=== PATIENT | female | born 1950 | race Caucasian/White ===

== ENCOUNTER 2017-04-20 16:03 | Inpatient (IN) ==
[2017-04-20] MEDS ORDERED: 0.9 % Sodium Chloride 1,000 ML IVC ONE (16:29)
--- NOTE | 2017-04-20 16:36 | Emergency Department Note ---
Disposition Clinical Impression: Rectal bleeding Disposition: Admitted As Inpatient GI Bleed HPI - General Chief complaint: ED GI Bleed Stated complaint: rectal bleeding/back pain Time Seen by Provider: 04/20/17 16:24 Source: patient Limitations: no limitations Nursing Notes Reviewed: Yes Vital Signs Reviewed: Yes - History of Present Illness HPI Narrative: 66-year-old female who comes in complaining of crampy abdominal pain and rectal bleeding began today. 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 She presents now for evaluation. 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 Constitutional: Denies: fever, chills, weakness, weight change Eyes: Denies: eye pain, eye discharge, vision change ENT ED: Denies: ear pain, throat pain, dental pain, hearing loss, epistaxis, congestion, dysphagia Cardiovascular: Denies: chest pain, palpitations, dyspnea on exertion, edema, syncope Respiratory: Denies: cough, dyspnea, wheezes, hemoptysis, stridor Gastrointestinal: Reports: abdominal pain, hematochezia. Denies: nausea, vomiting, diarrhea, constipation, hematemesis, melena Genitourinary: Denies: dysuria, frequency, hematuria, discharge Musculoskeletal: Denies: back pain, neck pain, arthralgia, myalgia Integumentary: Denies: rash, abrasion, lesions Neurological: Denies: headache, weakness, numbness, paresthesias, confusion, abnormal gait, vertigo Psychiatric: Denies: anxiety, depression, suicidal thoughts, homicidal thoughts , auditory hallucinations, visual hallucinations Endocrine: Denies: fatigue Hematological/Lymphatic: Denies: easy bleeding, easy bruising Allergic/Immunologic: Denies: facial swelling, urticaria Past Medical History - Past Medical History Medical history: Reports: CVA, DVT, GERD, other Psychiatric history: Reports: no psych history - Social History Smoking Status: Never smoker Smokeless Tobacco Status: No Alcohol use: Reports: none Drug use: Reports: none Physical Exam - General Limitations: no limitations General appearance: alert, in distress - Head Head exam: atraumatic - Eye Eye exam: Present: normal appearance, PERRL, EOMI - ENT ENT exam: normal exam, normal oropharynx, mucous membranes moist - Neck Neck exam: Present: normal inspection, full ROM, trachea midline - Chest Chest inspection: Present: normal inspection, symmetric chest wall rise - Respiratory Respiratory exam: Present: normal lung sounds bilaterally - Cardiovascular Cardiovascular exam: Present: regular rate, normal rhythm, normal heart sounds - Abdominal Exam Abdominal exam: Present: tenderness. Absent: guarding, rebound - Extremities Exam Extremities exam: Present: normal inspection, full ROM. Absent: tenderness, pedal edema - Expanded Lower Extremity Exam Neurovascular/Tendon exam: Absent: motor deficit, sensory deficit, tendon deficit Gait: observed and normal - Back Exam Back exam: Present: normal inspection, full ROM. Absent: tenderness - Neurological Exam Neurological exam: Present: alert, oriented X3 - Psychiatric Psychiatric exam: Present: normal affect, normal mood - Skin Skin exam: Present: warm, dry, intact, normal color Course - Reevaluation(s) Reevaluation #1: 66-year-old female who is on warfarin for factor V and previous blood clots and comes in with rectal bleeding. Hemoglobin is stable however she does have a positive guaiac and she did have a bloody bowel movement here in the ER. Patient will be admitted for evaluation and treatment. Time: 19:13 - Consultations Time: 19:14 Vital Signs Temperature 97.9 F 04/20/17 16:09 Pulse Rate 95 04/20/17 16:09 Respiratory Rate 22 04/20/17 16:09 Blood Pressure 132/75 04/20/17 16:09 O2 Sat by Pulse Oximetry 93 04/20/17 16:09 Temperature 98.0 F 04/21/17 11:59 Pulse Rate 76 04/21/17 11:59 Respiratory Rate 18 04/21/17 11:59 Blood Pressure 139/79 04/21/17 11:59 O2 Sat by Pulse Oximetry 96 04/21/17 11:59 Oxygen Delivery Oxygen Delivery Room Air GI Bleed - Lab Data Lab results reviewed: Yes I reviewed the patient's lab results. Result diagrams: 04/21/17 08:19 04/21/17 05:53 Lab Results 04/20/17 04/20/17 04/20/17 Range/Units 16:58 16:58 16:58 WBC 7.0 (4.3-11.1) K/mcL RBC 5.15 H (3.82-4.97) M/mcL Hgb 14.9 (11.5-15.4) g/dL Hct 45.6 H (35.3-44.9) % MCV 88.5 (83.0-100.0) fL MCH 28.9 (28.0-33.3) pg MCHC 32.7 (31.6-35.5) g/dL RDW 13.3 (11.5-14.5) % Plt Count 178 (140-400) K/mcL MPV 11.3 (9.4-12.4) fL Immature Gran % 0.3 (0-4) % Seg Neutrophils % 54.2 % Lymphocytes % 32.2 % Monocytes % 11.2 % Eosinophils % 1.7 % Basophils % 0.4 % Neutrophils # 3.8 (1.6-8.9) K/mcL Lymphocytes # 2.2 (0.6-4.6) K/mcL Monocytes # 0.8 (0.0-1.3) K/mcL Eosinophils # 0.1 (0.0-0.6) K/mcL Basophils # 0.0 (0.0-0.2) K/mcL PT 41.3 H (9.4-12.1) Seconds INR 3.7 APTT 47.1 H (26.0-36.0) Seconds Sodium 142 (136-145) mEq/L Potassium 3.5 (3.5-4.5) mEq/L Chloride 108 (98-109) mEq/L Carbon Dioxide 24 (19-29) mEq/L BUN 10 (7-20) mg/dL Creatinine 0.82 (0.57-1.11) mg/dL Est GFR ( Amer) > 60 (> 60) Est GFR (Non-Af Amer) > 60 (> 60) BUN/Creatinine Ratio 12 (6-26) Glucose 97 (70-99) mg/dL Calculated Osmolality 293 (280-300) Lactic Acid (0.5-2.2) mmol/L Calcium 9.2 (8.6-10.8) mg/dL Troponin I (0-0.03) ng/mL Lipase 47 (8-78) Units/L Blood Type Antibody Screen 04/20/17 04/20/17 04/20/17 Range/Units 16:58 16:58 16:58 WBC (4.3-11.1) K/mcL RBC (3.82-4.97) M/mcL Hgb (11.5-15.4) g/dL Hct (35.3-44.9) % MCV (83.0-100.0) fL MCH (28.0-33.3) pg MCHC (31.6-35.5) g/dL RDW (11.5-14.5) % Plt Count (140-400) K/mcL MPV (9.4-12.4) fL Immature Gran % (0-4) % Seg Neutrophils % % Lymphocytes % % Monocytes % % Eosinophils % % Basophils % % Neutrophils # (1.6-8.9) K/mcL Lymphocytes # (0.6-4.6) K/mcL Monocytes # (0.0-1.3) K/mcL Eosinophils # (0.0-0.6) K/mcL Basophils # (0.0-0.2) K/mcL PT (9.4-12.1) Seconds INR APTT (26.0-36.0) Seconds Sodium (136-145) mEq/L Potassium (3.5-4.5) mEq/L Chloride (98-109) mEq/L Carbon Dioxide (19-29) mEq/L BUN (7-20) mg/dL Creatinine (0.57-1.11) mg/dL Est GFR ( Amer) (> 60) Est GFR (Non-Af Amer) (> 60) BUN/Creatinine Ratio (6-26) Glucose (70-99) mg/dL Calculated Osmolality (280-300) Lactic Acid 1.4 (0.5-2.2) mmol/L Calcium (8.6-10.8) mg/dL Troponin I 0.02 (0-0.03) ng/mL Lipase (8-78) Units/L Blood Type AB POSITIVE Antibody Screen NEGATIVE - Radiology Data Radiology results reviewed: Yes I reviewed the patient's radiology results. Abdomen/Pelvis CT 04/20/17 16:31 IMPRESSION: No evidence of obstructive uropathy. Moderate hiatal hernia. D/ / Devan Carvajal MD / Devan Carvajal MD Interpreting Provider: Devan Carvajal MD - EKG Data EKG attestation: Yes I reviewed and interpreted this EKG. EKG shows normal: sinus rhythm Rate: normal Rhythm: NSR Interpretation: no acute changes
[2017-04-20 17:06] LABS: Basophils % 0.4 %; Eosinophils # 0.1 K/mcL (0.0-0.6); Eosinophils % 1.7 %; Hematocrit 45.6 % (35.3-44.9); Hemoglobin 14.9 g/dL (11.5-15.4); Immature Granulocytes % 0.3 % (0-4); Lymphocytes # 2.2 K/mcL (0.6-4.6); Lymphocytes % 32.2 %; Mean Corpuscular HGB Conc 32.7 g/dL (31.6-35.5); Mean Corpuscular Hemoglobin 28.9 pg (28.0-33.3); Mean Corpuscular Volume 88.5 fL (83.0-100.0); Mean Platelet Volume 11.3 fL (9.4-12.4); Monocytes # 0.8 K/mcL (0.0-1.3); Monocytes % 11.2 %; Neutrophils # 3.8 K/mcL (1.6-8.9); Platelet Count 178 K/mcL (140-400); Red Blood Count 5.15 M/mcL (3.82-4.97); Red Cell Distribution Width 13.3 % (11.5-14.5); Segmented Neutrophils % 54.2 %
[2017-04-20 17:12] LABS: INR 3.7; Prothrombin Time 41.3 Seconds (9.4-12.1)
[2017-04-20 17:14] LABS: Activated Partial Thrombo Time 47.1 Seconds (26.0-36.0)
[2017-04-20 17:24] LABS: BUN/Creatinine Ratio 12 (6-26); Blood Urea Nitrogen 10 mg/dL (7-20); Calcium 9.2 mg/dL (8.6-10.8); Carbon Dioxide 24 mEq/L (19-29); Chloride 108 mEq/L (98-109); Glucose 97 mg/dL (70-99); Lipase 47 Units/L (8-78); Osmolality,Calculated 293 (280-300); Potassium 3.5 mEq/L (3.5-4.5); Sodium 142 mEq/L (136-145); eGFR For African Americans > 60 (> 60); eGFR For Non-African Americans > 60 (> 60)
[2017-04-20] MEDS ORDERED: *HR* Morphine 2 MG/ML SYRINGE IVP PRN (21:01)
[2017-04-20] MEDS ORDERED: Naloxone 0.4 MG/ML INJ IVP PRN (21:01)
[2017-04-20 21:53] LABS: Hematocrit 45.1 % (35.3-44.9); Hemoglobin 14.7 g/dL (11.5-15.4)
--- NOTE | 2017-04-20 22:11 | Internal Med History&Physical ---
Date of Encounter: 04/20/17 Time of Encounter: 22:08 Assessment and Plan (1) Rectal bleeding Current visit: Yes Status: Acute Patient reports blood in her stool just prior to arrival in ED. She takes coumadin for Factor V leiden and her INR is supratherapeutic. Hgb stable at 14.9. She reports she had another bowel movement in the ED that was not bloody. Hold coumadin. Check H/H Q6hr Check PT/INR/PTT with morning labs Clear liquid diet Consider referral to GI for scope. (2) Supratherapeutic INR Current visit: Yes Status: Acute Patient on coumadin for Factor V Leiden. INR of 3.7. Hold coumadin Recheck PT/INR in the morning. (3) Factor V Leiden Current visit: Yes Status: Acute Patient has Factor V Leiden. She reports she had a CVA in her 20s, multiple miscarriages, multiple DVTs and PE. She reports she was started on coumadin in the . Her INR is Supratherapeutic today at 3.7 and she is reporting rectal bleeding. Will hold coumadin and recheck PT/INR in the morning. Given patient's history of blood clots, will not reverse coumadin. (4) Diarrhea Current visit: Yes Status: Acute Patient reports chronic liquid yellow stools. She has been evaluated by GI and diagnosed with functional diarrhea. Qualifiers: Diarrhea type: functional diarrhea Qualified Code(s): K59.1 - Functional diarrhea (5) DVT prophylaxis Current visit: Yes Status: Acute Sequential compression devices Patient is on coumadin and INR is supratherapeutic, Holding coumadin, additional pharmacologic prophylaxis contraindicated in patient with suspected GI bleed. Internal Medicine - H&P: HPI Chief complaint: rectal bleeding Admitted From: Emergency Dept Plans for Post Hospital Care: Home History of present illness: Ms. Prieto is a 66 year old female with active 5 Leiden deficiency on Coumadin, history of multiple DVTs, PE, CVA, peripheral vascular disease, functional diarrhea presented to the emergency department today with complaints of bloody stool. Patient reports that she has chronic liquid stools, following as an outpatient with GI and has been diagnosed with functional diarrhea. She reports that after having a bowel movement today she wiped and so blood on her toilet paper, she then had another bowel movement soon after which looked like blood in the toilet bowl. She denies any lightheadedness, dizziness, chest pain , palpitations, shortness of breath. He does endorse cramping with her bowel movements, but this is chronic for her. She denies nausea or vomiting, fever, chills or sweats. She reports she had another bowel movement in the emergency department, which she reports was normal for her. Evaluation in the emergency department revealed supratherapeutic INR of 3.7. Hemoglobin was stable at 14.9. CT of the abdomen revealed moderate hiatal hernia, the colon was decompressed, and no inflammatory stranding was seen. Torres, patient alert and oriented, in no acute distress. Heart had regular rate and rhythm, lungs are clear bilaterally to auscultation. Abdomen was diffusely mildly tender, but patient reports this is normal for her. Past Med Surg Social Fam HX - Past Medical History Medical history: CVA, DVT, GERD, pulmonary embolus, venous stasis, other ( factor V leiden) Psychiatric history: depression - Past Surgical History Surgical History: hysterectomy, vascular surgery - Social History Smoking Status: Never smoker Smokeless Tobacco Status: No Alcohol use: none Drug use: none - Family History Father Living Status: Age at : 56 Cause of : stomach cancer Hx Family Cancer: Yes Mother Living Status: Age at : 85 Cause of : CVA Brother Living Status: Age at : 61 Internal Medicine - H&P: Meds HYDROcodone/Acet 5/325 mg [[place] 5-325 mg] 1 tab PO Q6H PRN #10 tab 09/30/16 [Rx ] Warfarin [Coumadin] QPM 04/20/17 [History] Allergies promethazine [From Phenergan] Allergy (Verified 09/30/16 20:19) See Comments All Systems PM: A 10-system review of systems was performed and is negative for pertinent findings except as documented above in the HPI. - Constitutional Constitutional: no chills, no fever(s), no night sweats - EENT Eyes: no change in vision, no discharge, no pain, no photophobia Ears: no ear discharge, no ear pain, no tinnitus Nose, mouth and throat: no dysphagia, no nasal discharge, no neck pain, no sore throat - Cardiovascular Cardiovascular ROS IM: no chest pain, no diaphoresis, no dyspnea, no lightheadedness, no palpitations, no syncope - Respiratory Respiratory: no cough, no dyspnea, no wheezing, no excessive phlegm production - Gastrointestinal Gastrointestinal: abdominal pain, diarrhea, hematochezia, no hematemesis, no melena, no nausea, no vomiting - Genitourinary Genitourinary: no change in urinary stream, no dysuria, no flank pain, no hematuria - Musculoskeletal Musculoskeletal ROS IM: no numbness, no tingling - Integumentary Integumentary IM: no rash, no unusual bruising - Neurological Neurological ROS: no confusion, no convulsions, no focal weakness, no numbness, no tingling, no tremor(s) - Hematologic/Lymphatic Hematologic/Lymphatic: no easy bruising - Constitutional Vitals: Temp Pulse Resp BP Pulse Ox 97.9 F 75 20 157/98 94 04/20/17 16:09 04/20/17 18:13 04/20/17 21:30 04/20/17 21:30 04/20/17 18:13 General appearance: Present: A&O X 3, pleasant, no acute distress - Head Head exam: Present: atraumatic, normocephalic - Eye Eye exam: Present: PERRL, conjuntiva pink, sclera anicteric Pupils: Present: PERRL - Neck Neck exam general surgery: Present: supple, trachea midline. Absent: lymphadenopathy - Respiratory Respiratory exam: Present: CTAB. Absent: accessory muscle use, rales, rhonchi, wheezes - Cardiovascular Cardiovascular exam: Present: RRR, +S1, +S2. Absent: diastolic murmur, gallop, rubs, systolic murmur - GI/Abdominal GI/Abdominal exam: Present: normal bowel sounds, soft, tenderness (mild diffuse) , no peritoneal signs. Absent: distended - Extremities Exam Extremities exam: Present: warm, radial pulses palpable and symetrical. Absent : calf tenderness, cyanotic, pedal edema - Neurological Exam Neurological exam: Present: CN II-XII intact, oriented X3, no focal deficits. Absent: facial droop, speech deficit - Skin Skin exam: Present: dry, intact Internal Med - H&P Results - Labs CBC & Chem 7: 04/20/17 21:46 04/20/17 16:58 Labs: All Lab Results (24 Hours) 04/20/17 04/20/17 04/20/17 Range/Units 16:58 16:58 16:58 WBC 7.0 (4.3-11.1) K/mcL RBC 5.15 H (3.82-4.97) M/mcL Hgb 14.9 (11.5-15.4) g/dL Hct 45.6 H (35.3-44.9) % MCV 88.5 (83.0-100.0) fL MCH 28.9 (28.0-33.3) pg MCHC 32.7 (31.6-35.5) g/dL RDW 13.3 (11.5-14.5) % Plt Count 178 (140-400) K/mcL MPV 11.3 (9.4-12.4) fL Immature Gran % 0.3 (0-4) % Seg Neutrophils % 54.2 % Lymphocytes % 32.2 % Monocytes % 11.2 % Eosinophils % 1.7 % Basophils % 0.4 % Neutrophils # 3.8 (1.6-8.9) K/mcL Lymphocytes # 2.2 (0.6-4.6) K/mcL Monocytes # 0.8 (0.0-1.3) K/mcL Eosinophils # 0.1 (0.0-0.6) K/mcL Basophils # 0.0 (0.0-0.2) K/mcL PT 41.3 H (9.4-12.1) Seconds INR 3.7 APTT 47.1 H (26.0-36.0) Seconds Sodium 142 (136-145) mEq/L Potassium 3.5 (3.5-4.5) mEq/L Chloride 108 (98-109) mEq/L Carbon Dioxide 24 (19-29) mEq/L BUN 10 (7-20) mg/dL Creatinine 0.82 (0.57-1.11) mg/dL Est GFR ( Amer) > 60 (> 60) Est GFR (Non-Af Amer) > 60 (> 60) BUN/Creatinine Ratio 12 (6-26) Glucose 97 (70-99) mg/dL Calculated Osmolality 293 (280-300) Lactic Acid (0.5-2.2) mmol/L Calcium 9.2 (8.6-10.8) mg/dL Troponin I (0-0.03) ng/mL Lipase 47 (8-78) Units/L Blood Type Antibody Screen 04/20/17 04/20/17 04/20/17 Range/Units 16:58 16:58 16:58 WBC (4.3-11.1) K/mcL RBC (3.82-4.97) M/mcL Hgb (11.5-15.4) g/dL Hct (35.3-44.9) % MCV (83.0-100.0) fL MCH (28.0-33.3) pg MCHC (31.6-35.5) g/dL RDW (11.5-14.5) % Plt Count (140-400) K/mcL MPV (9.4-12.4) fL Immature Gran % (0-4) % Seg Neutrophils % % Lymphocytes % % Monocytes % % Eosinophils % % Basophils % % Neutrophils # (1.6-8.9) K/mcL Lymphocytes # (0.6-4.6) K/mcL Monocytes # (0.0-1.3) K/mcL Eosinophils # (0.0-0.6) K/mcL Basophils # (0.0-0.2) K/mcL PT (9.4-12.1) Seconds INR APTT (26.0-36.0) Seconds Sodium (136-145) mEq/L Potassium (3.5-4.5) mEq/L Chloride (98-109) mEq/L Carbon Dioxide (19-29) mEq/L BUN (7-20) mg/dL Creatinine (0.57-1.11) mg/dL Est GFR ( Amer) (> 60) Est GFR (Non-Af Amer) (> 60) BUN/Creatinine Ratio (6-26) Glucose (70-99) mg/dL Calculated Osmolality (280-300) Lactic Acid 1.4 (0.5-2.2) mmol/L Calcium (8.6-10.8) mg/dL Troponin I 0.02 (0-0.03) ng/mL Lipase (8-78) Units/L Blood Type AB POSITIVE Antibody Screen NEGATIVE 04/20/17 Range/Units 21:46 WBC (4.3-11.1) K/mcL RBC (3.82-4.97) M/mcL Hgb 14.7 (11.5-15.4) g/dL Hct 45.1 H (35.3-44.9) % MCV (83.0-100.0) fL MCH (28.0-33.3) pg MCHC (31.6-35.5) g/dL RDW (11.5-14.5) % Plt Count (140-400) K/mcL MPV (9.4-12.4) fL Immature Gran % (0-4) % Seg Neutrophils % % Lymphocytes % % Monocytes % % Eosinophils % % Basophils % % Neutrophils # (1.6-8.9) K/mcL Lymphocytes # (0.6-4.6) K/mcL Monocytes # (0.0-1.3) K/mcL Eosinophils # (0.0-0.6) K/mcL Basophils # (0.0-0.2) K/mcL PT (9.4-12.1) Seconds INR APTT (26.0-36.0) Seconds Sodium (136-145) mEq/L Potassium (3.5-4.5) mEq/L Chloride (98-109) mEq/L Carbon Dioxide (19-29) mEq/L BUN (7-20) mg/dL Creatinine (0.57-1.11) mg/dL Est GFR ( Amer) (> 60) Est GFR (Non-Af Amer) (> 60) BUN/Creatinine Ratio (6-26) Glucose (70-99) mg/dL Calculated Osmolality (280-300) Lactic Acid (0.5-2.2) mmol/L Calcium (8.6-10.8) mg/dL Troponin I (0-0.03) ng/mL Lipase (8-78) Units/L Blood Type Antibody Screen - Diagnostic Studies CT scan - abdomen Additional comments: Abdomen/Pelvis CT 04/20/17 16:31 IMPRESSION: No evidence of obstructive uropathy. Moderate hiatal hernia. D/ / Devan Carvajal MD / Devan Carvajal MD Interpreting Provider: Devan Carvajal MD
[2017-04-21] MEDS: Pantoprazole 40 MG VIAL IVP SCH (05:43)
[2017-04-21 06:41] LABS: Prothrombin Time 33.9 Seconds (9.4-12.1)
[2017-04-21 06:44] LABS: Activated Partial Thrombo Time 42.7 Seconds (26.0-36.0)
[2017-04-21 06:51] LABS: BUN/Creatinine Ratio 11 (6-26); Blood Urea Nitrogen 8 mg/dL (7-20); Calcium 8.7 mg/dL (8.6-10.8); Carbon Dioxide 28 mEq/L (19-29); Chloride 106 mEq/L (98-109); Glucose 91 mg/dL (70-99); Osmolality,Calculated 292 (280-300); Potassium 3.5 mEq/L (3.5-4.5); Sodium 142 mEq/L (136-145); eGFR For African Americans > 60 (> 60); eGFR For Non-African Americans > 60 (> 60)
[2017-04-21 07:06] LABS: Basophils % 0.3 %; Eosinophils # 0.1 K/mcL (0.0-0.6); Eosinophils % 2.1 %; Hematocrit 43.3 % (35.3-44.9); Hemoglobin 14.2 g/dL (11.5-15.4); Immature Granulocytes % 0.2 % (0-4); Lymphocytes # 2.5 K/mcL (0.6-4.6); Lymphocytes % 43.7 %; Mean Corpuscular HGB Conc 32.8 g/dL (31.6-35.5); Mean Corpuscular Hemoglobin 29.3 pg (28.0-33.3); Mean Corpuscular Volume 89.3 fL (83.0-100.0); Mean Platelet Volume 11.9 fL (9.4-12.4); Monocytes # 0.6 K/mcL (0.0-1.3); Monocytes % 9.8 %; Neutrophils # 2.5 K/mcL (1.6-8.9); Platelet Count 161 K/mcL (140-400); Red Blood Count 4.85 M/mcL (3.82-4.97); Red Cell Distribution Width 13.4 % (11.5-14.5); Segmented Neutrophils % 43.9 %
[2017-04-21 08:16] LABS: Bilirubin,Urine Negative (Negative); Blood,Urine Negative (Negative); Clarity,Urine Clear (Clear); Color,Urine Yellow (Yellow); Glucose,Urine (UA) Normal (Normal); Ketones,Urine Negative (Negative); Leukocyte Esterase,Urine Negative (Negative); Nitrite,Urine Negative (Negative); PH,Urine 6.5 pH Units (5.0-8.0); Protein,Urine Negative (Neg-Trace); Specific Gravity,Urine 1.019 (1.010-1.025); Urobilinogen,Urine Normal (Normal)
[2017-04-21 08:32] LABS: Hematocrit 43.6 % (35.3-44.9); Hemoglobin 14.3 g/dL (11.5-15.4)
--- NOTE | 2017-04-21 11:58 | Internal Med Progress Note ---
Date of Encounter: 04/21/17 Time of Encounter: 11:57 - Assessment and plan (1) Rectal bleeding Current Visit: Yes Status: Acute Assessment and plan: Patient had a single episode of bright red bleeding per rectum at home, likely hemorrhoidal versus diverticular. Serial measurements of Hemoglobin remains stable at around 14. No further episodes of rectal bleeding. Full liquid diet as tolerated. Patient may benefit from outpatient colonoscopy if hemoglobin remains stable and patient remains asymptomatic. Coumadin has been held due to supratherapeutic INR. (2) Supratherapeutic INR Current Visit: Yes Status: Resolved Assessment and plan: INR was noted to be 3.7 with use of Coumadin. Held Coumadin, Noted to be 3 this morning. No further episodes of GI bleed. Patient will be referred to anticoagulation clinic at the time of discharge. (3) Factor V Leiden Current Visit: Yes Status: Chronic Assessment and plan: Continue long-term anticoagulation with Coumadin as an outpatient. - Subjective Interval history: Feels better; improving back pain and abdominal cramps; no further episodes of rectal bleeding since admission; no nausea/emesis; - Constitutional Vitals: Temp Pulse Resp BP Pulse Ox 98.1 F 62 18 132/85 95 04/21/17 07:54 04/21/17 07:54 04/21/17 07:54 04/21/17 07:54 04/21/17 07:54 General appearance: Present: A&O X 3, obese, answers questions appropriately - Respiratory Respiratory exam: Present: CTAB. Absent: accessory muscle use, rales, rhonchi, wheezes - Cardiovascular Cardiovascular exam: Present: RRR, +S1, +S2. Absent: diastolic murmur, gallop, rubs, systolic murmur - GI/Abdominal GI/Abdominal exam: Present: normal bowel sounds, soft (obese), no peritoneal signs. Absent: distended, tenderness - Extremities Exam Extremities exam: Present: warm, radial pulses palpable and symetrical. Absent : calf tenderness, cyanotic, pedal edema - Skin Skin exam: Present: dry, intact Additional comments: right distal medial leg with chronic healed ulcer with hyperpigmentation/ deformity, no open wounds Internal Medicine: Result - Labs CBC & Chem 7: 04/21/17 08:19 04/21/17 05:53 Labs: Short CBC 04/20/17 04/21/1717 Range/Units 21:46 05:53 08:19 WBC 5.7 (4.3-11.1) K/mcL Hgb 14.7 14.2 14.3 (11.5-15.4) g/dL Hct 45.1 H 43.3 43.6 (35.3-44.9) % Plt Count 161 (140-400) K/mcL Neutrophils # 2.5 (1.6-8.9) K/mcL BMP 04/21/17 05:53 Sodium 142 Potassium 3.5 Chloride 106 Carbon Dioxide 28 BUN 8 Creatinine 0.76 Glucose 91 Calcium 8.7 Urine 04/21/17 Range/Units 08:05 Urine Color Yellow (Yellow) Urine Clarity Clear (Clear) Urine pH 6.5 (5.0-8.0) pH Units Ur Specific [place] 1.019 (1.010-1.025) Urine Protein Negative (Neg-Trace) mg/dL Urine Glucose (UA) Normal (Normal) mg/dL - ABG Interpretation ABG results: PT/INR, D-dimer PT 33.9 Seconds (9.4-12.1) H 04/21/17 05:53 Consult Discharge Plan - Plan Referrals: Sonia Araujo MD [Primary Care Provider] -
[2017-04-22 06:01] LABS: INR 2.1; Prothrombin Time 22.9 Seconds (9.4-12.1)
[2017-04-22 06:03] LABS: Basophils % 0.4 %; Eosinophils # 0.1 K/mcL (0.0-0.6); Eosinophils % 2.3 %; Hematocrit 43.5 % (35.3-44.9); Hemoglobin 14.5 g/dL (11.5-15.4); Immature Granulocytes % 0.2 % (0-4); Lymphocytes # 2.2 K/mcL (0.6-4.6); Lymphocytes % 45.6 %; Mean Corpuscular HGB Conc 33.3 g/dL (31.6-35.5); Mean Corpuscular Hemoglobin 29.4 pg (28.0-33.3); Mean Corpuscular Volume 88.1 fL (83.0-100.0); Mean Platelet Volume 12.1 fL (9.4-12.4); Monocytes # 0.5 K/mcL (0.0-1.3); Monocytes % 10.8 %; Neutrophils # 1.9 K/mcL (1.6-8.9); Platelet Count 148 K/mcL (140-400); Red Blood Count 4.94 M/mcL (3.82-4.97); Red Cell Distribution Width 13.3 % (11.5-14.5); Segmented Neutrophils % 40.7 %
[2017-04-22 06:09] LABS: BUN/Creatinine Ratio 9 (6-26); Blood Urea Nitrogen 7 mg/dL (7-20); Calcium 8.9 mg/dL (8.6-10.8); Carbon Dioxide 26 mEq/L (19-29); Chloride 109 mEq/L (98-109); Glucose 92 mg/dL (70-99); Osmolality,Calculated 292 (280-300); Potassium 3.4 mEq/L (3.5-4.5); Sodium 142 mEq/L (136-145); eGFR For African Americans > 60 (> 60); eGFR For Non-African Americans > 60 (> 60)
[2017-04-22] MEDS: Pantoprazole 40 MG VIAL IVP SCH (06:26)
[2017-04-22 11:21] VITALS: BP 122/72
[2017-04-22] MEDS ORDERED: Potassium Chloride Elixir 20 MEQ/15 ML UDC PO ONE (11:33)
--- NOTE | 2017-04-22 11:35 | Discharge Summary ---
Date of Encounter: 04/22/17 Time of Encounter: 11:33 - Discharge Diagnosis (1) Rectal bleeding Priority: Primary Status: Resolved (2) Supratherapeutic INR Priority: Primary Status: Resolved (3) Factor V Leiden Priority: Secondary Status: Chronic - Discharge Medications Prescriptions: Omeprazole [PriLOSEC] 40 mg PO DAILY #30 cap Home Medications: Citalopram Hydrobromide [Celexa] 10 mg PO DAILY 04/20/17 [History] Furosemide [Lasix] 20 mg PO DAILY PRN 04/20/17 [History] Warfarin [Coumadin] 4 mg PO AD 04/21/17 [History] Omeprazole [PriLOSEC] 40 mg PO DAILY #30 cap 04/22/17 [Rx] Allergies/Adverse Reactions: Allergies promethazine [From Phenergan] Allergy (Verified 04/21/17 12:24) Dizziness Date of admission: 04/20/17 21:02 Primary care physician: Sonia Araujo MD Consults: 04/20/17 22:22 Consult to Rail Assembler [CONS] Routine Reason for SW Consult: patient has financial concerns Discharging clinician: Marva Moody Anticipated date of discharge: 04/22/17 - Patient Status Disposition: Home, Self-Care Condition: Fair Functional capacity at discharge: independent ambulation Overall status at discharge: patient is progressing back to baseline - Discharge Instructions Instructions: Rectal Bleeding (DC) Follow Up With: Sonia Araujo MD [Primary Care Provider] - 04/26/17 2:50 pm Additional Instructions: F/up with Anticoagulation clinic, new appointment, in 3-4 days - Diet and Activity Activity: resume usual activities as tolerated Diet: low fat, low cholesterol, low salt diet Hospital course: Ms. Prieto is a 66 year old female with h/o- Factor 5 Leiden, on anticoagulation , was admitted with c/o- rectal bleeding. Her Hb remained close to baseline since admission with no further episodes of bleeding. She was noted to have slightly higher than target INR at admission, her Coumadin was held and it is currently normal, and she is recommended to restart her Coumadin. SHe requests to have a dedicated INR checkup appointment and she is being set up with Anticoagulation clinic for INR monitoring. Since she remains hemodynamically stable with stable Hb and no further episodes of bleeding, she is recommended to f/up with her PCP to have outpatient Colonoscopy as needed. sHe is otherwise medically stable for discharge. - Time Spent with Patient Total time spent providing and/or coordinating discharge services: Greater than 30 minutes (45 min) - Constitutional Vitals: Temp Pulse Resp BP Pulse Ox 98.1 F 64 18 122/72 94 04/22/17 11:03 04/22/17 11:03 04/22/17 11:03 04/22/17 11:03 04/22/17 11:03 General appearance: Present: A&O X 3, obese, answers questions appropriately - Respiratory Respiratory exam: Present: CTAB. Absent: accessory muscle use, rales, rhonchi, wheezes - Cardiovascular Cardiovascular exam: Present: RRR, +S1, +S2. Absent: diastolic murmur, gallop, rubs, systolic murmur
--- NOTE | 2017-04-22 16:54 | Electrocardiograph Report ---
[address] [address] Test Date: 2017-04-20 Pat Name: Joselin Prieto Department: 105 Room: 3A46 Gender: F Pairer Substandard: MSC : 1950 Requested By: James Mcneal Order Number: [id number] Reading MD: Nguyen Quiñones Measurements Intervals [place] Rate: 77 P: [place]: 0 QRS: 16 QRSD: 90 T: 3 QT: 345 QTc: 377 Interpretive Statements [employer] LIMITS INTERPRETATION CONSIDER SINUS RHYTHM Electronically Signed On 04-22-2017 16:53:12 EDT by Nguyen Quiñones
== END 2017-04-22 15:32 | disposition home or self-care (01) | DRG 378 ==
LOC: 3ANU 16:03 → EMEROO 16:03 → SUATTDRO 21:02 → 3ANU 21:55
PROVIDERS: ADMIT Nurse Practitioner Acute Care; ATTEND Internal Medicine

== ENCOUNTER 2017-05-06 18:07 | Inpatient (IN) ==
--- NOTE | 2017-05-06 19:33 | Emergency Department Note ---
Disposition Clinical Impression: Deep vein thrombosis of lower extremity Disposition: Admitted As Inpatient Condition: Fair General Adult HPI - General Chief complaint: ED Extremity Problem,Nontraumatic Stated complaint: + dvt Time Seen by Provider: 05/06/17 19:31 Source: patient Limitations: no limitations - History of Present Illness Pain Scale: 5 - Related Data Home Medications Medication Instructions Recorded Confirmed Citalopram Hydrobromide [Celexa] 10 mg PO QAM 04/20/17 05/06/17 Furosemide [Lasix] 20 mg PO DAILY PRN 04/20/17 05/06/17 Warfarin [Coumadin] 4 mg PO QPM 04/21/17 05/06/17 Albuterol Sulfate [Proair Hfa] 2 puff IH Q4H PRN 05/06/17 05/06/17 Previous Rx's Medication Instructions Recorded Omeprazole [PriLOSEC] 40 mg PO DAILY #30 cap 04/22/17 Allergies Allergy/AdvReac Type Severity Reaction Status Date / Time promethazine [From Phenergan] Allergy Dizziness Verified 05/06/17 18:33 Past Medical History - Past Medical History Medical history: Reports: CVA, DVT, GERD, other Surgical history: Reports: hysterectomy, vascular surgery Psychiatric history: Reports: depression - Social History Smoking Status: Never smoker Smokeless Tobacco Status: No Alcohol use: Reports: none Drug use: Reports: none Physical Exam - General Limitations: no limitations General appearance: alert, in no apparent distress Course Vital Signs Temperature 97.8 F 05/06/17 18:30 Pulse Rate 70 05/06/17 18:30 Respiratory Rate 16 05/06/17 18:30 Blood Pressure 161/86 05/06/17 18:30 O2 Sat by Pulse Oximetry 91 05/06/17 18:30 Temperature 98.2 F 05/07/17 03:35 Pulse Rate 71 05/07/17 03:35 Respiratory Rate 16 05/07/17 03:35 Blood Pressure 133/73 05/07/17 03:35 O2 Sat by Pulse Oximetry 95 05/07/17 03:35 Oxygen Delivery Oxygen Delivery Room Air Medical Decision Making - Lab Data Result diagrams: 05/06/17 20:15 05/06/17 20:15 Lab Results 05/06/17 05/06/17 05/06/17 Range/Units 20:15 20:15 20:15 WBC 6.8 (4.3-11.1) K/mcL RBC 5.29 H (3.82-4.97) M/mcL Hgb 15.1 (11.5-15.4) g/dL Hct 46.3 H (35.3-44.9) % MCV 87.5 (83.0-100.0) fL MCH 28.5 (28.0-33.3) pg MCHC 32.6 (31.6-35.5) g/dL RDW 13.4 (11.5-14.5) % Plt Count 183 (140-400) K/mcL MPV 11.1 (9.4-12.4) fL Immature Gran % 0.1 (0-4) % Seg Neutrophils % 54.9 % Lymphocytes % 34.6 % Monocytes % 8.2 % Eosinophils % 1.8 % Basophils % 0.4 % Neutrophils # 3.8 (1.6-8.9) K/mcL Lymphocytes # 2.4 (0.6-4.6) K/mcL Monocytes # 0.6 (0.0-1.3) K/mcL Eosinophils # 0.1 (0.0-0.6) K/mcL Basophils # 0.0 (0.0-0.2) K/mcL PT 23.5 H (9.4-12.1) Seconds INR 2.1 APTT 37.4 H (26.0-36.0) Seconds Sodium 144 (136-145) mEq/L Potassium 3.7 (3.5-4.5) mEq/L Chloride 109 (98-109) mEq/L Carbon Dioxide 26 (19-29) mEq/L BUN 11 (7-20) mg/dL Creatinine 0.84 (0.57-1.11) mg/dL Est GFR ( Amer) > 60 (> 60) Est GFR (Non-Af Amer) > 60 (> 60) BUN/Creatinine Ratio 13 (6-26) Glucose 97 (70-99) mg/dL Calculated Osmolality 297 (280-300) Calcium 9.4 (8.6-10.8) mg/dL Attestation Statement - Attestation Attestation: I examined this patient and my medical decision-making was reviewed with the QUANTITATIVE ANALYST/PA/Advanced Practice Nurse/Resident Physician. I agree with the documented findings, disposition and treatment plan as described except to the extent set forth below. [id number] time provided Patient complains of right lower extremity pain and swelling. She just had an outpatient duplex ultrasound that was positive for a clot. She already takes Coumadin. Right lower extremity with chronic skin changes on exam
[2017-05-06] MEDS ORDERED: *HR* Heparin 5,000 UNIT/ML VIAL IVP PRN ×2 (20:03)
[2017-05-06] MEDS ORDERED: *HR* Heparin 5,000 UNIT/ML VIAL IVP ONE (20:03)
[2017-05-06] MEDS ORDERED: Heparin 25,000 UNIT/500 ML D5W 25,000 UNIT/500 ML MLS IVC SCH (20:15)
[2017-05-06 20:24] LABS: Basophils % 0.4 %; Eosinophils # 0.1 K/mcL (0.0-0.6); Eosinophils % 1.8 %; Hematocrit 46.3 % (35.3-44.9); Hemoglobin 15.1 g/dL (11.5-15.4); Immature Granulocytes % 0.1 % (0-4); Lymphocytes # 2.4 K/mcL (0.6-4.6); Lymphocytes % 34.6 %; Mean Corpuscular HGB Conc 32.6 g/dL (31.6-35.5); Mean Corpuscular Hemoglobin 28.5 pg (28.0-33.3); Mean Corpuscular Volume 87.5 fL (83.0-100.0); Mean Platelet Volume 11.1 fL (9.4-12.4); Monocytes # 0.6 K/mcL (0.0-1.3); Monocytes % 8.2 %; Neutrophils # 3.8 K/mcL (1.6-8.9); Platelet Count 183 K/mcL (140-400); Red Blood Count 5.29 M/mcL (3.82-4.97); Red Cell Distribution Width 13.4 % (11.5-14.5); Segmented Neutrophils % 54.9 %
[2017-05-06 20:27] LABS: INR 2.1; Prothrombin Time 23.5 Seconds (9.4-12.1)
[2017-05-06 20:30] LABS: Activated Partial Thrombo Time 37.4 Seconds (26.0-36.0)
[2017-05-06 20:34] LABS: BUN/Creatinine Ratio 13 (6-26); Blood Urea Nitrogen 11 mg/dL (7-20); Calcium 9.4 mg/dL (8.6-10.8); Carbon Dioxide 26 mEq/L (19-29); Chloride 109 mEq/L (98-109); Glucose 97 mg/dL (70-99); Osmolality,Calculated 297 (280-300); Potassium 3.7 mEq/L (3.5-4.5); Sodium 144 mEq/L (136-145); eGFR For African Americans > 60 (> 60); eGFR For Non-African Americans > 60 (> 60)
--- NOTE | 2017-05-06 21:04 | Emergency Department Note ---
Disposition Clinical Impression: Deep vein thrombosis of lower extremity Qualifiers: Affected thrombotic vein of extremity: unspecified vein of extremity Laterality : right Chronicity: acute Qualified Code(s): I82.401 - Acute embolism and thrombosis of unspecified deep veins of right lower extremity Disposition: Admitted As Inpatient Condition: Fair Forms: ED Satisfaction Letter Time of Disposition: 21:10 Extremity Problem HPI - General Chief complaint: ED Extremity Problem,Nontraumatic Stated complaint: + dvt Time Seen by Provider: 05/06/17 19:31 Source: patient Limitations: no limitations Nursing Notes Reviewed: Yes Vital Signs Reviewed: Yes - History of Present Illness HPI Narrative: Patient is a 66-year-old female who presents to [facility] ED with a chief complaint of right lower extremity pain and swelling. States she has a history of factor V Leiden and she has had prior DVTs. She is anticoagulated on Coumadin and follows at the Coumadin clinic. States her last INR check was on Saturday and it was 2.3. Denies any nausea, vomiting, fever or chills. No difficulty breathing, chest pain, abdominal pain. No problems with urination or bowel movements. Patient states she went into her primary care's office today who was concerned for a DVT. She had an outpatient Doppler ultrasound performed which showed acute on chronic DVTs. They sent her in to be admitted for heparin therapy. Pt Subjective Complaint: extremity pain, extremity swelling Onset (ago): day(s) Consistency: constant Injury Location: right, lower extremity Pain Scale: 5 Quality: aching Radiation: none Improves with: nothing Worsens with: nothing Associated symptoms: Reports: denies other symptoms, swelling. Denies: chest pain, shortness of breath, abdominal pain, back pain, fever - Related Data Home Medications Medication Instructions Recorded Confirmed Citalopram Hydrobromide [Celexa] 10 mg PO DAILY 04/20/17 04/21/17 Furosemide [Lasix] 20 mg PO DAILY PRN 04/20/17 04/21/17 Warfarin [Coumadin] 4 mg PO AD 04/21/17 04/21/17 Previous Rx's Medication Instructions Recorded Omeprazole [PriLOSEC] 40 mg PO DAILY #30 cap 04/22/17 Allergies Allergy/AdvReac Type Severity Reaction Status Date / Time promethazine [From Phenergan] Allergy Dizziness Verified 06/19/17 18:33 All systems ED: reviewed and negative except as stated. Past Medical History - Past Medical History Attestation: Yes The following information was validated with the patient. Source: patient Medical history: Reports: CVA, DVT, GERD, other Surgical history: Reports: hysterectomy, vascular surgery Psychiatric history: Reports: depression - Social History Smoking Status: Never smoker Smokeless Tobacco Status: No Alcohol use: Reports: none Drug use: Reports: none Physical Exam - General Limitations: no limitations General appearance: alert, in no apparent distress - Head Head exam: atraumatic, normocephalic, normal inspection - Eye Eye exam: Present: normal appearance, EOMI - ENT ENT exam: normal exam, normal oropharynx, mucous membranes moist - Neck Neck exam: Present: normal inspection, full ROM, trachea midline - Chest Chest inspection: Present: normal inspection, symmetric chest wall rise - Respiratory Respiratory exam: Present: normal lung sounds bilaterally - Cardiovascular Cardiovascular exam: Present: regular rate, normal rhythm, normal heart sounds - Abdominal Exam Abdominal exam: Present: soft, Non-Tender. Absent: tenderness, distention, guarding, rebound, rigidity - Extremities Exam Extremities exam: Present: normal inspection, full ROM. Absent: tenderness, pedal edema - Back Exam Back exam: Present: normal inspection, full ROM. Absent: tenderness - Neurological Exam Neurological exam: Present: alert - Psychiatric Psychiatric exam: Present: normal affect, normal mood - Skin Skin exam: Present: warm, dry, intact, normal color Course Course Narrative: Patient seen and examined. Right lower extremity DVT felt Coumadin therapy. History of factor V Leiden. We will admit for heparin therapy. Labs, heparin ordered. - Reevaluation(s) Reevaluation #1: I spoke with hospitalist Dr. Tesfaye who has accepted patient for admission. Time: 21:09 Vital Signs Temperature 97.8 F 05/06/17 18:30 Pulse Rate 70 05/06/17 18:30 Respiratory Rate 16 05/06/17 18:30 Blood Pressure 161/86 05/06/17 18:30 O2 Sat by Pulse Oximetry 91 05/06/17 18:30 Temperature 97.8 F 05/06/17 18:30 Pulse Rate 70 05/06/17 18:30 Respiratory Rate 16 05/06/17 18:30 Blood Pressure 161/86 05/06/17 18:30 O2 Sat by Pulse Oximetry 91 05/06/17 18:30 Oxygen Delivery Oxygen Delivery Room Air Extremity Problem, Nontraumati - Medical Records Medical records reviewed: Yes I reviewed the patient's medical records. - Lab Data Lab results reviewed: Yes I reviewed the patient's lab results. Result diagrams: 05/06/17 20:15 05/06/17 20:15 Lab Results 05/06/17 05/06/17 05/06/17 Range/Units 20:15 20:15 20:15 WBC 6.8 (4.3-11.1) K/mcL RBC 5.29 H (3.82-4.97) M/mcL Hgb 15.1 (11.5-15.4) g/dL Hct 46.3 H (35.3-44.9) % MCV 87.5 (83.0-100.0) fL MCH 28.5 (28.0-33.3) pg MCHC 32.6 (31.6-35.5) g/dL RDW 13.4 (11.5-14.5) % Plt Count 183 (140-400) K/mcL MPV 11.1 (9.4-12.4) fL Immature Gran % 0.1 (0-4) % Seg Neutrophils % 54.9 % Lymphocytes % 34.6 % Monocytes % 8.2 % Eosinophils % 1.8 % Basophils % 0.4 % Neutrophils # 3.8 (1.6-8.9) K/mcL Lymphocytes # 2.4 (0.6-4.6) K/mcL Monocytes # 0.6 (0.0-1.3) K/mcL Eosinophils # 0.1 (0.0-0.6) K/mcL Basophils # 0.0 (0.0-0.2) K/mcL PT 23.5 H (9.4-12.1) Seconds INR 2.1 APTT 37.4 H (26.0-36.0) Seconds Sodium 144 (136-145) mEq/L Potassium 3.7 (3.5-4.5) mEq/L Chloride 109 (98-109) mEq/L Carbon Dioxide 26 (19-29) mEq/L BUN 11 (7-20) mg/dL Creatinine 0.84 (0.57-1.11) mg/dL Est GFR ( Amer) > 60 (> 60) Est GFR (Non-Af Amer) > 60 (> 60) BUN/Creatinine Ratio 13 (6-26) Glucose 97 (70-99) mg/dL Calculated Osmolality 297 (280-300) Calcium 9.4 (8.6-10.8) mg/dL
[2017-05-07 02:05] LABS: INR 2.2; Prothrombin Time 23.9 Seconds (9.4-12.1)
[2017-05-07] MEDS ORDERED: Furosemide 20 MG TABLET PO PRN (02:06)
[2017-05-07 02:11] LABS: Activated Partial Thrombo Time 70.6 Seconds (26.0-36.0)
--- NOTE | 2017-05-07 02:27 | Internal Med History&Physical ---
Date of Encounter: 05/07/17 Time of Encounter: 02:25 Assessment and Plan (1) Cellulitis Current visit: Yes Status: Acute Patient is having an area of redness swarms and tenderness over the lower anterior cabrera on the right side suspect early cellulitis. I will give the patient Bactrim. Qualifiers: Qualified Code(s): L03.90 - Cellulitis, unspecified (2) Factor V Leiden Current visit: No Status: Chronic She mentioned that she has been on Coumadin for many years. During that period she had multiple clots despite anticoagulation. (3) Deep vein thrombosis of lower extremity Current visit: Yes Status: Acute Patient has a proximal right lower extremity acute DVT. She is on anti- correlation with Coumadin. IRS 2.1. Patient is currently on heparin. We may do 2 approaches. 1st is to increase her target INR to 2.5 to 3.5. 2nd is to try a different anticoagulant. Would ask for hematology input. She is hemodynamically stable. Qualifiers: Affected thrombotic vein of extremity: unspecified vein of extremity Laterality: right Chronicity: acute Qualified Code(s): I82.401 - Acute embolism and thrombosis of unspecified deep veins of right lower extremity Internal Medicine - H&P: HPI Chief complaint: right leg pain History of present illness: Ms. Prieto is a 66 year old female with a history of factor 5 Leiden mutation on Coumadin started complaining of right leg pain. She has seen PCP and an ultrasound was performed which showed the proximal right DVT involving the right superficial femoral vein and popliteal vein. She is compliant with her Coumadin and INR is 2.1. She follows at the warfarin clinic. She does not know of target INR. She has been on Coumadin for many years according to her 20 years and had multiple clots during that time despite being on anticoagulation. She has complained of right-sided chest pain no relation to inspiration no worsening shortness of breath. She has been having an area of redness on the right anterior cabrera, tender to touch. Past Med Surg Social Fam HX - Past Medical History Medical history: CVA, DVT, GERD, other Psychiatric history: depression - Past Surgical History Surgical History: hysterectomy, vascular surgery - Social History Smoking Status: Never smoker Smokeless Tobacco Status: No Alcohol use: none Drug use: none - Family History Father Living Status: Hx Family Cancer: Yes Hx Family GI Disorders: Yes (peptic ulcer, CA) Mother Living Status: Hx Family Cardiac Disorders: Yes (stroke, blood clots) Brother Living Status: Internal Medicine - H&P: Meds Citalopram Hydrobromide [Celexa] 10 mg PO QAM 04/20/17 [History] Furosemide [Lasix] 20 mg PO DAILY PRN 04/20/17 [History] Warfarin [Coumadin] 4 mg PO QPM 04/21/17 [History] Omeprazole [PriLOSEC] 40 mg PO DAILY #30 cap 04/22/17 [Rx] Albuterol Sulfate [Proair Hfa] 2 puff IH Q4H PRN 05/06/17 [History] Allergies promethazine [From Phenergan] Allergy (Verified 05/06/17 18:33) Dizziness All Systems PM: A 10-system review of systems was performed and is negative for pertinent findings except as documented above in the HPI. Review of systems: 10 point review of systems is negative except for HPI - Constitutional Vitals: Temp Pulse Resp BP Pulse Ox 98.0 F 66 16 134/71 95 05/06/17 23:03 05/06/17 23:03 05/06/17 23:03 05/06/17 23:03 05/06/17 23:03 Exam: Gen.: patient is alert oriented times 3 cardiac: normal S1 S2 no additional sounds or murmurs chest: no active wheezing or bronchial breathing abdomen soft nontender nondistended normal bowel sounds lower extremity area of redness warmth in right lower leg anterior cabrera. Neuro: no new focal deficits Internal Med - H&P Results - Labs CBC & Chem 7: 05/06/17 20:15 05/06/17 20:15
[2017-05-07 07:47] LABS: Basophils % 0.5 %; Eosinophils # 0.1 K/mcL (0.0-0.6); Eosinophils % 2.1 %; Hematocrit 42.4 % (35.3-44.9); Hemoglobin 14.5 g/dL (11.5-15.4); Immature Granulocytes % 0.2 % (0-4); Lymphocytes # 3.1 K/mcL (0.6-4.6); Lymphocytes % 50.1 %; Mean Corpuscular HGB Conc 34.2 g/dL (31.6-35.5); Mean Corpuscular Hemoglobin 30.1 pg (28.0-33.3); Mean Corpuscular Volume 88.1 fL (83.0-100.0); Mean Platelet Volume 12.5 fL (9.4-12.4); Monocytes # 0.6 K/mcL (0.0-1.3); Monocytes % 9.4 %; Neutrophils # 2.3 K/mcL (1.6-8.9); Platelet Count 154 K/mcL (140-400); Red Blood Count 4.81 M/mcL (3.82-4.97); Red Cell Distribution Width 13.3 % (11.5-14.5); Segmented Neutrophils % 37.7 %
[2017-05-07 07:56] LABS: INR 1.8; Prothrombin Time 20.3 Seconds (9.4-12.1)
[2017-05-07 08:06] LABS: BUN/Creatinine Ratio 14 (6-26); Blood Urea Nitrogen 11 mg/dL (7-20); Calcium 8.7 mg/dL (8.6-10.8); Carbon Dioxide 25 mEq/L (19-29); Chloride 109 mEq/L (98-109); Glucose 94 mg/dL (70-99); Magnesium 1.9 mg/dL (1.6-2.6); Osmolality,Calculated 295 (280-300); Potassium 3.4 mEq/L (3.5-4.5); Sodium 143 mEq/L (136-145); eGFR For African Americans > 60 (> 60); eGFR For Non-African Americans > 60 (> 60)
--- NOTE | 2017-05-07 08:39 | Oncology Inp Consult Note ---
Date of Encounter: 05/07/17 Time of Encounter: 07:50 Assessment and Plan (1) Deep vein thrombosis of lower extremity Status: Acute Assessment and plan: Ms. Prieto is a very pleasant 66-year-old woman with a history of multiple thromboses with associated factor V leiden mutation including a sinus venous thrombosis, pulmonary embolism as well as recurrent right lower extremity deep vein thrombosis. As she was recently hospitalized for rectal bleeding for supratherapeutic INR of 3.7, I am uncertain she would be a good candidate for a higher INR threshold. I disucessed using alternative O DAC. She had voiced some concern about the press these agents have received. It is unclear if this will provide better protection than Coumadin in this setting, by do think it be a safer option. We also discussed transitioning him to Lovenox injections but she is not interested in this approach. Therefore, I recommend transitioning her to Xarelto 20 mg once daily at time of discharge. I will consult social work to help with obtaining Xarelto assistance. Thank you for allowing me to help you care for this delightful woman. I will schedule follow-up in my office. Please call [phone] with concerns or questions Qualifiers: Affected thrombotic vein of extremity: unspecified vein of extremity Laterality: right Chronicity: acute Qualified Code(s): I82.401 - Acute embolism and thrombosis of unspecified deep veins of right lower extremity - Data of Consult Patient: new to practice Requesting Physician: Marva Moody MD Primary Care Provider: Sonia Araujo MD - Consult Narrative Reason for consult: Recurrent DVT History of present illness: Ms. Prieto is a 66 year old female who initially experienced her first DVT in 1972. Per record, she carries a factor v leiden mutation. Patient developed a right leg deep vein thrombosis while on oral contraceptive therapy. She is essentially gone anticoagulation since that time. She is somewhat a poor historian. She states that she has had other thromboses that sound as though they occurred while on anticoagulation. This includes a recurrent deep vein thrombosis in the right leg with associated pulmonary embolism. This also includes what sounds to be a cerebral sinus thrombosis. It is not clear if these occurred while on anticoagulation, but she believes they may have at some time. She was hospitalized just too sure weeks ago for rectal bleeding when her INR was 3.7. Rectal bleeding resolved after her Coumadin was held and then restarted. She does follow with the Coumadin clinic with most recent INR on Saturday being 2.1. Today, she developed acute right ankle pain and swelling. This prompted repeat duplex Doppler which revealed acute on chronic right leg deep vein thrombosis. She was brought to the emergency department and placed on a heparin drip and subsequent admitted. Her swelling and pain have markedly improved since being placed on a heparin drip. Past Med Surg Social Fam HX - Past Medical History Medical history: CVA, DVT, GERD, other Psychiatric history: depression - Past Surgical History Surgical History: hysterectomy, vascular surgery - Social History Smoking Status: Never smoker Smokeless Tobacco Status: No Alcohol use: none Drug use: none - Family History Father Living Status: Hx Family Cancer: Yes Hx Family GI Disorders: Yes (peptic ulcer, CA) Mother Living Status: Hx Family Cardiac Disorders: Yes (stroke, blood clots) Brother Living Status: Medications and Allergies Citalopram Hydrobromide [Celexa] 10 mg PO QAM 04/20/17 [History] Furosemide [Lasix] 20 mg PO DAILY PRN 04/20/17 [History] Warfarin [Coumadin] 4 mg PO QPM 04/21/17 [History] Omeprazole [PriLOSEC] 40 mg PO DAILY #30 cap 04/22/17 [Rx] Albuterol Sulfate [Proair Hfa] 2 puff IH Q4H PRN 05/06/17 [History] Allergies promethazine [From Phenergan] Allergy (Verified 05/06/17 18:33) Dizziness All systems: reviewed and no additional remarkable complaints except as stated Constitutional: Present: fatigue Integumentary: Present: skin ulcer, sores, swelling Oncology - Exam - Constitutional Vitals: Temp Pulse Resp BP Pulse Ox 98.2 F 71 16 133/73 95 05/07/17 03:35 05/07/17 03:35 05/07/17 03:35 05/07/17 03:35 05/07/17 03:35 - Head Head exam: Present: atraumatic, normal inspection, normocephalic - Eye Eye exam: Present: conjuntiva pink, sclera anicteric - ENT ENT exam: Present: mucous membranes moist, normal oropharynx - Neck Neck exam: Present: full ROM, normal inspection - Respiratory Respiratory exam: Present: CTAB - Cardiovascular Cardiovascular exam: Present: RRR - GI/Abdominal GI/Abdominal exam: Present: normal bowel sounds, soft - Extremities Exam Extremities exam: Present: calf tenderness Additional comments: Right > left venous stasis changes with associated healed ulcerations. - Neurological Exam Neurological exam: Present: CN II-XII intact, normal gait, oriented X3 Oncology - Results - Labs Labs: Short CBC 05/07/17 Range/Units 06:14 WBC 6.2 (4.3-11.1) K/mcL Hgb 14.5 (11.5-15.4) g/dL Hct 42.4 (35.3-44.9) % Plt Count 154 (140-400) K/mcL Neutrophils # 2.3 (1.6-8.9) K/mcL BMP 05/07/17 06:14 Sodium 143 Potassium 3.4 L Chloride 109 Carbon Dioxide 25 BUN 11 Creatinine 0.79 Glucose 94 Calcium 8.7 Consult Discharge Plan - Plan Referrals: Sonia Araujo MD [Primary Care Provider] -
[2017-05-07] MEDS ORDERED: Sulfamethoxazole/Trimeth DS 1 EACH TABLET PO SCH (09:00)
[2017-05-07 09:09] LABS: INR 1.8; Prothrombin Time 19.9 Seconds (9.4-12.1)
[2017-05-07 09:12] LABS: Activated Partial Thrombo Time 48.4 Seconds (26.0-36.0)
[2017-05-07 10:57] VITALS: BP 135/84
[2017-05-07] MEDS ORDERED: cephALEXin 500 MG CAPSULE PO SCH (13:00)
--- NOTE | 2017-05-07 13:03 | Discharge Summary ---
Date of Encounter: 05/07/17 Time of Encounter: 13:00 - Discharge Diagnosis (1) Deep vein thrombosis of lower extremity Priority: Primary Status: Acute Comments: Recurrent right lower extremity DVT, failed Coumadin Qualifiers: Affected thrombotic vein of extremity: unspecified vein of extremity Laterality: right Chronicity: acute Qualified Code(s): I82.401 - Acute embolism and thrombosis of unspecified deep veins of right lower extremity (2) Cellulitis Priority: Secondary Status: Acute Comments: stop bactrim , start keflex Qualifiers: Site of cellulitis: extremity Site of cellulitis of extremity: lower extremity Laterality: right Qualified Code(s): L03.115 - Cellulitis of right lower limb (3) Factor V Leiden Priority: Secondary Status: Chronic - Discharge Medications Prescriptions: cephALEXin [Keflex] 500 mg PO QID #28 capsule Rivaroxaban [Xarelto] 20 mg PO 1700 #30 tablet Home Medications: Citalopram Hydrobromide [Celexa] 10 mg PO QAM 04/20/17 [History] Furosemide [Lasix] 20 mg PO DAILY PRN 04/20/17 [History] Omeprazole [PriLOSEC] 40 mg PO DAILY #30 cap 04/22/17 [Rx] Albuterol Sulfate [Proair Hfa] 2 puff IH Q4H PRN 05/06/17 [History] Rivaroxaban [Xarelto] 20 mg PO 1700 #30 tablet 05/07/17 [Rx] cephALEXin [Keflex] 500 mg PO QID #28 capsule 05/07/17 [Rx] Allergies/Adverse Reactions: Allergies promethazine [From Phenergan] Allergy (Verified 05/06/17 18:33) Dizziness Date of admission: 05/07/17 12:39 Primary care physician: Sonia Araujo MD - Patient Status Disposition: Home Health Service Condition: Fair Overall status at discharge: patient is back to baseline - Discharge Instructions Follow Up With: Sonia Araujo MD [Primary Care Provider] - Additional Instructions: Follow-up with primary care physician within the next 7 days. Follow-up with hematology oncology within the next 2 weeks. Continue Xarelto. Stop Coumadin permanently. Complete 7 days of Keflex. - Diet and Activity Activity: increase activity as tolerated Diet: low fat, low cholesterol Hospital course: Ms. Prieto is a 66 year old female who initially experienced her first DVT in 1972. Per record, she carries a factor v leiden mutation. Patient developed a right leg deep vein thrombosis while on oral contraceptive therapy. She has been on anticoagulation since that time. She stated that she has had other thromboses that sound as though they occurred while on anticoagulation. This included a recurrent deep vein thrombosis in the right leg with associated pulmonary embolism. This also includes what sounds to be a cerebral sinus thrombosis. It is not clear if these occurred while on anticoagulation, but she believes they may have at some time. She was hospitalized just too sure weeks ago for rectal bleeding when her INR was 3.7. Rectal bleeding resolved after her Coumadin was held and then restarted. She did follow with the Coumadin clinic. Her INR was therapeutic upon admission She developed acute right ankle pain and swelling. This prompted repeat duplex Doppler which revealed acute on chronic right leg deep vein thrombosis. She was brought to the emergency department and placed on a heparin drip and subsequent admitted. Her swelling and pain have markedly improved since being placed on a heparin drip. Upon admission, the patient was started on Bactrim for a right lower extremity cellulitis area, Bactrim was stopped after 1 dose and the patient will be discharged on Keflex. Hematology oncology was consulted and recommended to continue Xarelto. Risks of bleeding explained , Lovenox and other options were discussed but the patient does not want to have injections. - Time Spent with Patient Total time spent providing and/or coordinating discharge services: Greater than 30 minutes (40 min) - Constitutional Vitals: Temp Pulse Resp BP Pulse Ox 97.9 F 75 18 135/84 95 05/07/17 10:51 05/07/17 10:51 05/07/17 10:51 05/07/17 10:51 05/07/17 10:51 General appearance: Present: A&O X 3, morbidly obese - Head Head exam: Present: atraumatic, normocephalic - Eye Eye exam: Present: PERRL, conjuntiva pink, sclera anicteric Pupils: Present: PERRL - Neck Neck exam general surgery: Present: supple, trachea midline. Absent: lymphadenopathy - Respiratory Respiratory exam: Present: CTAB. Absent: accessory muscle use, rales, rhonchi, wheezes - Cardiovascular Cardiovascular exam: Present: RRR, +S1, +S2. Absent: diastolic murmur, gallop, rubs, systolic murmur - GI/Abdominal GI/Abdominal exam: Present: distended, normal bowel sounds, soft, no peritoneal signs. Absent: tenderness - Extremities Exam Extremities exam: Present: warm, radial pulses palpable and symetrical. Absent : calf tenderness, cyanotic, pedal edema - Neurological Exam Neurological exam: Present: CN II-XII intact, oriented X3, no focal deficits. Absent: pronater drift, facial droop, speech deficit - Skin Skin exam: Present: dry. Absent: intact (chronic right lower venous stasis wound , mild erythema) - VTE Documentation of Mechanical Device: Intermittent pneumatic compression device
--- NOTE | 2017-05-07 13:12 | Physician Discharge Referral ---
Home Health/Hosp Referral Info Transfer to: Home Health Provider in Charge Post Discharge: PCP - Diagnosis (1) Deep vein thrombosis of lower extremity Status: Acute (2) Cellulitis Status: Acute (3) Factor V Leiden Status: Chronic - Respiratory Orders Smoking Cessation: Smoking cessation has been advised. For more information, call the [place] Tobacco Quit Line at 4-079-UNPB-NOW. - Diet/Nutrition Diet/Nutrition Orders: No Added Salt (JOSE) - Activity Activity: List: Follow-up with primary care physician within the next 7 days. Follow-up with hematology oncology within the next 2 weeks. Continue Xarelto. Stop Coumadin permanently. Complete 7 days of Keflex. - Transfer Medications Prescriptions: cephALEXin [Keflex] 500 mg PO QID #28 capsule Rivaroxaban [Xarelto] 20 mg PO 1700 #30 tablet Home Medications: Citalopram Hydrobromide [Celexa] 10 mg PO QAM 04/20/17 [History] Furosemide [Lasix] 20 mg PO DAILY PRN 04/20/17 [History] Omeprazole [PriLOSEC] 40 mg PO DAILY #30 cap 04/22/17 [Rx] Albuterol Sulfate [Proair Hfa] 2 puff IH Q4H PRN 05/06/17 [History] Rivaroxaban [Xarelto] 20 mg PO 1700 #30 tablet 05/07/17 [Rx] cephALEXin [Keflex] 500 mg PO QID #28 capsule 05/07/17 [Rx] Allergies/Adverse Reactions: Allergies promethazine [From Phenergan] Allergy (Verified 05/06/17 18:33) Dizziness Certification: Further, I certify that my clinical findings support that this patient is homebound (i.e. absences from home require considerable and taxing effort and are for medical reasons or confucianism services or infrequently or short duration when for other reasons) because: Homebound Reason: Patient requires assistance of a person or device to safely leave home Attestation: My signature below is to certify that this patient is under my care and that I, or nurse practitioner, or a physician's child development assistant working with me, has a face-to -face encounter with this patient.
[2017-05-07] MEDS ORDERED: *HR* Rivaroxaban 10 MG TABLET PO SCH (14:45)
[2017-05-07] MEDS ORDERED: *HR* Warfarin 4 MG TABLET PO SCH (18:00)
== END 2017-05-07 15:45 | disposition home or self-care (01) | DRG 300 ==
LOC: 3ANU 18:07 → EMEROO 18:07 → 3ANU 21:22
PROVIDERS: ADMIT Internal Medicine; ATTEND Internal Medicine

== ENCOUNTER 2021-09-02 01:05 | Observation (INO) ==
[2021-09-02] MEDS ORDERED: 0.9 % Sodium Chloride 1,000 ML IVC ONE (01:11)
[2021-09-02] MEDS ORDERED: Ondansetron 4 MG/2 ML VIAL IVP ONE ×3 (01:11→15:03)
[2021-09-02] MEDS ORDERED: *HR* FentaNYL (PF) 100 MCG/2 ML VIAL IVP ONE ×2 (01:11→06:14)
[2021-09-02 01:51] LABS: Basophils % 0.3 %; Eosinophils # 0.1 K/mcL (0.0-0.6); Eosinophils % 1.1 %; Hematocrit 35.6 % (35.3-44.9); Hemoglobin 10.7 g/dL (11.5-15.4); Immature Granulocytes % 0.2 % (0-4); Lymphocytes # 1.6 K/mcL (0.6-4.6); Mean Corpuscular HGB Conc 30.1 g/dL (31.6-35.5); Mean Corpuscular Hemoglobin 25.2 pg (28.0-33.3); Mean Platelet Volume 12.4 fL (9.4-12.4); Monocytes # 0.4 K/mcL (0.0-1.3); Monocytes % 5.8 %; Neutrophils # 4.3 K/mcL (1.6-8.9); Platelet Count 177 K/mcL (140-400); Red Blood Count 4.24 M/mcL (3.82-4.97); Red Cell Distribution Width 15.9 % (11.5-14.5); Segmented Neutrophils % 67.6 %; White Blood Count 6.3 K/mcL (4.3-11.1)
[2021-09-02 02:03] LABS: BUN/Creatinine Ratio 17 (6-26); Blood Urea Nitrogen 13 mg/dL (8-23); Calcium 8.9 mg/dL (8.6-10.3); Carbon Dioxide 21 mEq/L (23-29); Chloride 110 mEq/L (98-107); Glucose 152 mg/dL (70-105); Osmolality,Calculated 297 (280-300); Potassium 4.2 mEq/L (3.5-5.1); Sodium 142 mEq/L (136-145); eGFR For African Americans > 60 (> 60); eGFR For Non-African Americans > 60 (> 60)
[2021-09-02 02:06] LABS: INR 2.5; Prothrombin Time 28.2 Seconds (9.4-12.1)
[2021-09-02] MEDS ORDERED: Isovue-370 500 ML BOTTLE IVP ONE (02:11)
[2021-09-02] MEDS: Pantoprazole 40 MG in 0.9 % Sodium Chloride Mini Bag 100 ML IVC SCH ×2 (05:00→11:39)
[2021-09-02 05:47] LABS: Influenza A PCR Negative (Negative); Influenza B PCR Negative (Negative); Resp. Syncytial Virus PCR Negative (Negative); SARS-CoV-2 by PCR (In House) Negative (Negative)
[2021-09-02 07:35] LABS: Bilirubin,Urine Negative (Negative); Blood,Urine Large (Negative); Clarity,Urine Turbid (Clear); Color,Urine Light-Orange (Yellow); Glucose,Urine (UA) Normal (Normal); Ketones,Urine Negative (Negative); Leukocyte Esterase,Urine Negative (Negative); Nitrite,Urine Negative (Negative); Protein,Urine 30 mg/dL (Neg-Trace); RBC,Urine TNTC per hpf (0-3); Specific Gravity,Urine > 1.030 (1.010-1.025); Urobilinogen,Urine Normal (Normal)
[2021-09-02 10:08] LABS: Basophils % 0.3 %; Eosinophils % 0.4 %; Hematocrit 33.8 % (35.3-44.9); Hemoglobin 10.2 g/dL (11.5-15.4); Immature Granulocytes % 0.3 % (0-4); Lymphocytes % 29.1 %; Mean Corpuscular HGB Conc 30.2 g/dL (31.6-35.5); Mean Corpuscular Hemoglobin 25.7 pg (28.0-33.3); Mean Corpuscular Volume 85.1 fL (83.0-100.0); Mean Platelet Volume 11.5 fL (9.4-12.4); Monocytes # 0.6 K/mcL (0.0-1.3); Monocytes % 8.6 %; Neutrophils # 4.2 K/mcL (1.6-8.9); Platelet Count 215 K/mcL (140-400); Red Blood Count 3.97 M/mcL (3.82-4.97); Red Cell Distribution Width 15.9 % (11.5-14.5); Segmented Neutrophils % 61.3 %; White Blood Count 6.9 K/mcL (4.3-11.1)
[2021-09-02] MEDS ORDERED: *HR* HYDROmorphone (PF) 1 MG/ML SYRINGE IVP ONE ×2 (11:15→15:03)
[2021-09-02] MEDS ORDERED: Ondansetron 4 MG/2 ML VIAL ONE (15:05)
[2021-09-02] MEDS: Pantoprazole 40 MG VIAL IVP SCH ×2 (15:10→19:37)
[2021-09-02] MEDS ORDERED: Naloxone 0.4 MG/ML INJ IVP PRN (16:27)
[2021-09-02] MEDS ORDERED: Acetaminophen 325 MG TABLET PO PRN (16:27)
[2021-09-02] MEDS ORDERED: *HR* HYDROcodone/Acet 5/325 mg TABLET PO PRN (17:06)
[2021-09-02] MEDS ORDERED: Ondansetron 4 MG/2 ML VIAL IVP PRN (17:55)
[2021-09-02] MEDS: Ringers Solution, Lactated 1,000 ML IVC SCH (18:36)
[2021-09-02] MEDS: Acetaminophen IV 1,000 MG/100 ML BAG IVPB SCH (18:39)
[2021-09-03] MEDS: Acetaminophen IV 1,000 MG/100 ML BAG IVPB SCH ×2 (00:24→05:19)
[2021-09-03 05:07] LABS: Basophils % 0.5 %; Eosinophils # 0.1 K/mcL (0.0-0.6); Hematocrit 33.1 % (35.3-44.9); Hemoglobin 9.8 g/dL (11.5-15.4); Immature Granulocytes % 0.2 % (0-4); Lymphocytes # 1.7 K/mcL (0.6-4.6); Lymphocytes % 38.8 %; Mean Corpuscular HGB Conc 29.6 g/dL (31.6-35.5); Mean Corpuscular Hemoglobin 25.8 pg (28.0-33.3); Mean Corpuscular Volume 87.1 fL (83.0-100.0); Mean Platelet Volume 11.9 fL (9.4-12.4); Monocytes # 0.5 K/mcL (0.0-1.3); Monocytes % 11.6 %; Neutrophils # 2.1 K/mcL (1.6-8.9); Platelet Count 191 K/mcL (140-400); Red Cell Distribution Width 15.9 % (11.5-14.5); Segmented Neutrophils % 46.9 %; White Blood Count 4.4 K/mcL (4.3-11.1)
[2021-09-03] MEDS: Pantoprazole 40 MG VIAL IVP SCH ×2 (05:20→17:14)
[2021-09-03] MEDS: Ringers Solution, Lactated 1,000 ML IVC SCH (05:23)
[2021-09-03 05:24] LABS: BUN/Creatinine Ratio 13 (6-26); Blood Urea Nitrogen 9 mg/dL (8-23); Calcium 8.4 mg/dL (8.6-10.3); Carbon Dioxide 25 mEq/L (23-29); Chloride 110 mEq/L (98-107); Glucose 95 mg/dL (70-105); Osmolality,Calculated 294 (280-300); Potassium 3.4 mEq/L (3.5-5.1); Sodium 143 mEq/L (136-145); eGFR For African Americans > 60 (> 60); eGFR For Non-African Americans > 60 (> 60)
[2021-09-03 05:30] LABS: % Iron Saturation 4 % (15-50); Iron 18 mcg/dL (50-170); Transferrin 325 mg/dL (203-362)
[2021-09-03 05:42] LABS: Ferritin 8 ng/mL (10-120)
[2021-09-03 05:47] LABS: Folate 7.9 ng/mL (3.0-16.0)
[2021-09-03] MEDS: *HR* Rivaroxaban 10 MG TABLET PO SCH (09:43)
[2021-09-03] MEDS ORDERED: Cyanocobalamin (B-12) 1,000 MCG/ML VIAL SQ ONE (13:48)
[2021-09-03] MEDS ORDERED: Acetaminophen 325 MG TABLET PO PRN (15:44)
[2021-09-03] MEDS: Acetaminophen 325 MG TABLET PO PRN ×2 (17:14→23:35)
[2021-09-04] MEDS: Pantoprazole 40 MG VIAL IVP SCH (05:19)
[2021-09-04 07:08] VITALS: O2SAT 92
[2021-09-04] MEDS: *HR* Rivaroxaban 10 MG TABLET PO SCH (08:14)
[2021-09-04 10:57] VITALS: BP 143/83; PULSE 76; TEMP 98.4
== END 2021-09-04 12:38 | disposition home or self-care (01) ==
LOC: 3ANU 01:05 → EMEROOARM 01:05 → SUATTDRO 16:14 → 3ANU 17:26
PROVIDERS: ADMIT Pharmacist; ATTEND Internal Medicine

== ENCOUNTER 2021-11-23 01:41 | Inpatient (IN) ==
[2021-11-23] MEDS ORDERED: Ondansetron 4 MG/2 ML VIAL IVP PRN (04:51)
[2021-11-23] MEDS ORDERED: Naloxone 0.4 MG/ML INJ IVP PRN (04:51)
[2021-11-23] MEDS ORDERED: Remdesivir 200 MG in 0.9 % Sodium Chloride 100 ML IVPB ONE (05:28)
[2021-11-23 05:53] LABS: Red Cell Distribution Width 17.7 % (11.5-14.5)
[2021-11-23 05:55] LABS: Hematocrit 47.7 % (35.3-44.9); Hemoglobin 14.9 g/dL (11.5-15.4); Immature Granulocytes % 0.3 % (0-4); Lymphocytes # 0.4 K/mcL (0.6-4.6); Lymphocytes % 9.8 %; Mean Corpuscular HGB Conc 31.2 g/dL (31.6-35.5); Mean Corpuscular Hemoglobin 27.2 pg (28.0-33.3); Mean Corpuscular Volume 87.2 fL (83.0-100.0); Monocytes # 0.4 K/mcL (0.0-1.3); Monocytes % 10.1 %; Platelet Count 101 K/mcL (140-400); Red Blood Count 5.47 M/mcL (3.82-4.97); Segmented Neutrophils % 79.8 %; White Blood Count 3.8 K/mcL (4.3-11.1)
[2021-11-23 06:08] LABS: Alanine Aminotransferase 34 Units/L (7-52); Albumin 3.7 g/dL (3.5-5.7); Albumin/Globulin Ratio 1.1 (1.1-2.2); Alkaline Phosphatase 70 Units/L (34-104); Aspartate Amino Transferase 58 Units/L (13-39); BUN/Creatinine Ratio 19 (6-26); Bilirubin,Total 0.5 mg/dL (0.3-1.0); Blood Urea Nitrogen 12 mg/dL (8-23); Calcium 8.7 mg/dL (8.6-10.3); Carbon Dioxide 24 mEq/L (23-29); Chloride 111 mEq/L (98-107); Globulin 3.3 g/dL (2.4-3.5); Glucose 124 mg/dL (70-105); Lactate Dehydrogenase 348 Units/L (140-271); Osmolality,Calculated 287 (280-300); Potassium 3.5 mEq/L (3.5-5.1); Sodium 138 mEq/L (136-145); eGFR For African Americans > 60 (> 60); eGFR For Non-African Americans > 60 (> 60)
[2021-11-23 06:27] LABS: ABG Base Excess -1 mEq/L (-2 to 3); ABG HCO3 22 mEq/L (21-27); ABG Oxygen Saturation 94 % (95-98); ABG PCO2 30 mmHg (35-45); ABG PH 7.46 pH Units (7.32-7.45); ABG PO2 65 mmHg (85-104); ABG TCO2 22 mEq/L (20-26)
[2021-11-23 06:50] LABS: Ferritin 313 ng/mL (10-120)
[2021-11-23] MEDS ORDERED: Isovue-370 500 ML BOTTLE IVP ONE (07:36)
[2021-11-23] MEDS ORDERED: Budesonide/Formoterol 160/4.5 1 PUFF INH IH ONE (08:01)
[2021-11-23] MEDS: Ipratropium 1 PUFF INHALER IH SCH ×5 (08:04→23:25)
[2021-11-23] MEDS: Budesonide/Formoterol 160/4.5 1 PUFF INH IH SCH ×3 (08:04→20:30)
[2021-11-23] MEDS: Cholecalciferol (D-3) 1,000 UNIT (25MCG) TABLET PO SCH (08:48)
[2021-11-23] MEDS: Multivit/Ca/Min/Fe/FA 1 TAB TABLET PO SCH (08:48)
[2021-11-23] MEDS ORDERED: Chlorhexidine Rinse 15 ML MOUTHWASH MM SCH (09:00)
[2021-11-23] MEDS: Artificial Tears SOLN 15 ML BOTTLE BOTH EYES SCH ×4 (09:01→21:12)
[2021-11-23] MEDS: Furosemide 20 MG/2 ML VIAL IVP SCH (09:15)
[2021-11-23] MEDS: Dexamethasone Sodium Phos/PF 10 MG/ML VIAL IVP SCH (09:16)
[2021-11-23 10:05] LABS: C-Reactive Protein 54 mg/L (Less than 10)
[2021-11-23] MEDS: Remdesivir 100 MG in 0.9 % Sodium Chloride 100 ML IVPB SCH (16:45)
[2021-11-23] MEDS ORDERED: *HR* LORazepam 2 MG/ML VIAL IVP ONE (21:25)
[2021-11-23] MEDS: Melatonin 3 MG TABLET PO PRN (22:57)
[2021-11-23] MEDS: Acetaminophen 325 MG TABLET PO PRN (23:00)
[2021-11-24] MEDS: Ipratropium 1 PUFF INHALER IH SCH ×5 (03:56→20:05)
[2021-11-24] MEDS: Furosemide 20 MG/2 ML VIAL IVP SCH (08:25)
[2021-11-24] MEDS: Dexamethasone Sodium Phos/PF 10 MG/ML VIAL IVP SCH (08:25)
[2021-11-24] MEDS: Artificial Tears SOLN 15 ML BOTTLE BOTH EYES SCH ×4 (08:26→21:00)
[2021-11-24] MEDS: Multivit/Ca/Min/Fe/FA 1 TAB TABLET PO SCH (08:26)
[2021-11-24] MEDS: Cholecalciferol (D-3) 1,000 UNIT (25MCG) TABLET PO SCH (08:26)
[2021-11-24] MEDS: Budesonide/Formoterol 160/4.5 1 PUFF INH IH SCH ×2 (08:45→20:05)
[2021-11-24] MEDS ORDERED: *HR* Rivaroxaban 10 MG TABLET PO SCH (09:00)
[2021-11-24 09:30] LABS: Red Cell Distribution Width 17.8 % (11.5-14.5)
[2021-11-24 09:32] LABS: Hematocrit 47.7 % (35.3-44.9); Hemoglobin 14.9 g/dL (11.5-15.4); Immature Platelets 15.8 % (1.1-6.1); Mean Corpuscular HGB Conc 31.2 g/dL (31.6-35.5); Mean Corpuscular Hemoglobin 27.3 pg (28.0-33.3); Mean Corpuscular Volume 87.4 fL (83.0-100.0); Platelet Count 114 K/mcL (140-400); Red Blood Count 5.46 M/mcL (3.82-4.97)
[2021-11-24 09:51] LABS: Alanine Aminotransferase 28 Units/L (7-52); Albumin 3.5 g/dL (3.5-5.7); Albumin/Globulin Ratio 1.1 (1.1-2.2); Alkaline Phosphatase 64 Units/L (34-104); Aspartate Amino Transferase 50 Units/L (13-39); BUN/Creatinine Ratio 32 (6-26); Bilirubin,Total 0.5 mg/dL (0.3-1.0); Blood Urea Nitrogen 22 mg/dL (8-23); C-Reactive Protein 39 mg/L (Less than 10); Calcium 8.3 mg/dL (8.6-10.3); Carbon Dioxide 27 mEq/L (23-29); Chloride 109 mEq/L (98-107); Globulin 3.2 g/dL (2.4-3.5); Glucose 106 mg/dL (70-105); Lactate Dehydrogenase 414 Units/L (140-271); Osmolality,Calculated 306 (280-300); Phosphorous 2.6 mg/dL (2.7-4.5); Potassium 3.5 mEq/L (3.5-5.1); Sodium 146 mEq/L (136-145); Total Protein 6.7 g/dL (6.4-8.9); eGFR For African Americans > 60 (> 60); eGFR For Non-African Americans > 60 (> 60)
[2021-11-24 10:07] LABS: Ferritin 325 ng/mL (10-120)
[2021-11-24] MEDS: Acetaminophen 325 MG TABLET PO PRN (14:36)
[2021-11-24] MEDS: Remdesivir 100 MG in 0.9 % Sodium Chloride 100 ML IVPB SCH (17:18)
[2021-11-24] MEDS ORDERED: Heparin 25,000UNIT/250ML 1/2NS 25,000 UNIT/250 ML IV.SOLN IVC SCH (20:30)
[2021-11-24 21:03] LABS: Hematocrit 47.3 % (35.3-44.9); Hemoglobin 15.1 g/dL (11.5-15.4); Mean Corpuscular HGB Conc 31.9 g/dL (31.6-35.5)
[2021-11-24 21:05] LABS: Immature Platelets 18.5 % (1.1-6.1); Mean Corpuscular Hemoglobin 27.8 pg (28.0-33.3); Mean Corpuscular Volume 86.9 fL (83.0-100.0); Platelet Count 160 K/mcL (140-400); Red Blood Count 5.44 M/mcL (3.82-4.97); Red Cell Distribution Width 17.5 % (11.5-14.5); White Blood Count 3.9 K/mcL (4.3-11.1)
[2021-11-24 21:09] LABS: Heparin anti-factor XA UFH 0.09 IU/mL (0.30-0.70); INR 1.3; Prothrombin Time 14.3 Seconds (9.4-12.1)
[2021-11-24 21:16] LABS: ABG Base Excess 3 mEq/L (-2 to 3); ABG HCO3 28 mEq/L (21-27); ABG Oxygen Saturation 89 % (95-98); ABG PCO2 44 mmHg (35-45); ABG PH 7.41 pH Units (7.32-7.45); ABG PO2 56 mmHg (85-104); ABG TCO2 29 mEq/L (20-26); Blood Gas Modality BiLevel; Blood Gas VT 450 cc
[2021-11-24] MEDS: Dexmedetomidine HCl 400 MCG/100 ML MLS IVC SCH (23:28)
[2021-11-25] MEDS: Ipratropium 1 PUFF INHALER IH SCH ×7 (00:09→23:31)
[2021-11-25 00:36] LABS: Hematocrit 47.6 % (35.3-44.9); Red Cell Distribution Width 17.5 % (11.5-14.5)
[2021-11-25 00:38] LABS: Immature Platelets 14.4 % (1.1-6.1); Mean Corpuscular HGB Conc 31.5 g/dL (31.6-35.5); Mean Corpuscular Hemoglobin 27.3 pg (28.0-33.3); Mean Corpuscular Volume 86.7 fL (83.0-100.0); Platelet Count 120 K/mcL (140-400); Red Blood Count 5.49 M/mcL (3.82-4.97); White Blood Count 5.3 K/mcL (4.3-11.1)
[2021-11-25] MEDS: Heparin 25,000UNIT/250ML 1/2NS 25,000 UNIT/250 ML IV.SOLN IVC SCH (00:46)
[2021-11-25 00:51] LABS: Alanine Aminotransferase 29 Units/L (7-52); Albumin 3.5 g/dL (3.5-5.7); Albumin/Globulin Ratio 1.1 (1.1-2.2); Alkaline Phosphatase 64 Units/L (34-104); Aspartate Amino Transferase 52 Units/L (13-39); BUN/Creatinine Ratio 41 (6-26); Bilirubin,Total 0.5 mg/dL (0.3-1.0); Blood Urea Nitrogen 26 mg/dL (8-23); C-Reactive Protein 33 mg/L (Less than 10); Calcium 8.3 mg/dL (8.6-10.3); Carbon Dioxide 28 mEq/L (23-29); Chloride 109 mEq/L (98-107); Globulin 3.2 g/dL (2.4-3.5); Glucose 131 mg/dL (70-105); Lactate Dehydrogenase 416 Units/L (140-271); Osmolality,Calculated 307 (280-300); Phosphorous 2.6 mg/dL (2.7-4.5); Potassium 3.5 mEq/L (3.5-5.1); Sodium 145 mEq/L (136-145); Total Protein 6.7 g/dL (6.4-8.9); eGFR For African Americans > 60 (> 60); eGFR For Non-African Americans > 60 (> 60)
[2021-11-25 01:10] LABS: Ferritin 332 ng/mL (10-120)
[2021-11-25] MEDS ORDERED: Furosemide 20 MG/2 ML VIAL IVP ONE (02:33)
[2021-11-25 03:17] LABS: ABG Base Excess 4 mEq/L (-2 to 3); ABG HCO3 28 mEq/L (21-27); ABG Oxygen Saturation 95 % (95-98); ABG PCO2 41 mmHg (35-45); ABG PH 7.45 pH Units (7.32-7.45); ABG PO2 71 mmHg (85-104); ABG TCO2 29 mEq/L (20-26); Blood Gas Modality CPAP/PS
[2021-11-25] MEDS: Budesonide/Formoterol 160/4.5 1 PUFF INH IH SCH ×2 (08:15→20:24)
[2021-11-25] MEDS: Dexamethasone Sodium Phos/PF 10 MG/ML VIAL IVP SCH (08:48)
[2021-11-25] MEDS: Artificial Tears SOLN 15 ML BOTTLE BOTH EYES SCH ×3 (08:49→20:11)
[2021-11-25] MEDS: Furosemide 20 MG/2 ML VIAL IVP SCH ×2 (08:49→20:06)
[2021-11-25] MEDS: Cholecalciferol (D-3) 1,000 UNIT (25MCG) TABLET PO SCH (08:49)
[2021-11-25] MEDS: Multivit/Ca/Min/Fe/FA 1 TAB TABLET PO SCH (08:49)
[2021-11-25] MEDS: Azithromycin 500 MG in 0.9 % Sodium Chloride 250 ML IVPB SCH (17:12)
[2021-11-25] MEDS: cefTRIAXone 2,000 MG in 0.9 % Sodium Chloride Mini Bag 100 ML IVPB SCH (17:27)
[2021-11-25] MEDS: Remdesivir 100 MG in 0.9 % Sodium Chloride 100 ML IVPB SCH (17:28)
[2021-11-26 00:33] LABS: Red Cell Distribution Width 17.5 % (11.5-14.5)
[2021-11-26 00:35] LABS: Hematocrit 48.4 % (35.3-44.9); Immature Platelets 14.2 % (1.1-6.1); Mean Corpuscular Hemoglobin 26.9 pg (28.0-33.3); Mean Corpuscular Volume 86.7 fL (83.0-100.0); Platelet Count 126 K/mcL (140-400); Red Blood Count 5.58 M/mcL (3.82-4.97); White Blood Count 5.5 K/mcL (4.3-11.1)
[2021-11-26 00:39] LABS: Activated Partial Thrombo Time 88.6 Seconds (26.0-36.0)
[2021-11-26 01:19] LABS: Alanine Aminotransferase 33 Units/L (7-52); Albumin 3.4 g/dL (3.5-5.7); Alkaline Phosphatase 61 Units/L (34-104); Aspartate Amino Transferase 66 Units/L (13-39); BUN/Creatinine Ratio 45 (6-26); Bilirubin,Total 0.4 mg/dL (0.3-1.0); Blood Urea Nitrogen 30 mg/dL (8-23); C-Reactive Protein 22 mg/L (Less than 10); Calcium 8.1 mg/dL (8.6-10.3); Carbon Dioxide 26 mEq/L (23-29); Chloride 109 mEq/L (98-107); Ferritin 345 ng/mL (10-120); Globulin 3.3 g/dL (2.4-3.5); Glucose 142 mg/dL (70-105); Lactate Dehydrogenase 451 Units/L (140-271); Osmolality,Calculated 315 (280-300); Phosphorous 3.5 mg/dL (2.7-4.5); Potassium 3.5 mEq/L (3.5-5.1); Sodium 148 mEq/L (136-145); Total Protein 6.7 g/dL (6.4-8.9); eGFR For African Americans > 60 (> 60); eGFR For Non-African Americans > 60 (> 60)
[2021-11-26] MEDS: Heparin 25,000UNIT/250ML 1/2NS 25,000 UNIT/250 ML IV.SOLN IVC SCH (01:20)
[2021-11-26] MEDS: Ipratropium 1 PUFF INHALER IH SCH ×6 (03:38→23:24)
[2021-11-26] MEDS: Dexmedetomidine HCl 400 MCG/100 ML MLS IVC SCH ×2 (04:06→20:03)
[2021-11-26] MEDS: Budesonide/Formoterol 160/4.5 1 PUFF INH IH SCH ×2 (07:40→19:44)
[2021-11-26] MEDS: Cholecalciferol (D-3) 1,000 UNIT (25MCG) TABLET PO SCH (09:09)
[2021-11-26] MEDS: Multivit/Ca/Min/Fe/FA 1 TAB TABLET PO SCH (09:09)
[2021-11-26] MEDS: cefTRIAXone 2,000 MG in 0.9 % Sodium Chloride Mini Bag 100 ML IVPB SCH (09:25)
[2021-11-26] MEDS: Azithromycin 500 MG in 0.9 % Sodium Chloride 250 ML IVPB SCH (09:25)
[2021-11-26] MEDS: Artificial Tears SOLN 15 ML BOTTLE BOTH EYES SCH ×4 (09:26→20:11)
[2021-11-26] MEDS: Furosemide 20 MG/2 ML VIAL IVP SCH (09:26)
[2021-11-26] MEDS: Saliva Stimulant 44.3ml BOTTLE PO PRN ×2 (09:27→20:03)
[2021-11-26] MEDS ORDERED: Acetaminophen 325 MG RECTAL SUPP RC PRN (09:33)
[2021-11-26] MEDS: Dexamethasone Sodium Phos/PF 10 MG/ML VIAL IVP SCH (09:42)
[2021-11-26] MEDS: Pantoprazole 40 MG VIAL IVP SCH (18:10)
[2021-11-26] MEDS: Remdesivir 100 MG in 0.9 % Sodium Chloride 100 ML IVPB SCH (18:11)
[2021-11-26] MEDS: Ascorbic Acid 500 MG TABLET PO SCH (20:04)
[2021-11-27] MEDS: Heparin 25,000UNIT/250ML 1/2NS 25,000 UNIT/250 ML IV.SOLN IVC SCH ×2 (00:59→21:20)
[2021-11-27 02:48] LABS: Hematocrit 52.7 % (35.3-44.9); Hemoglobin 16.2 g/dL (11.5-15.4); Mean Corpuscular HGB Conc 30.7 g/dL (31.6-35.5); Mean Corpuscular Hemoglobin 27.2 pg (28.0-33.3); Mean Corpuscular Volume 88.4 fL (83.0-100.0); Platelet Count 123 K/mcL (140-400); Red Blood Count 5.96 M/mcL (3.82-4.97); Red Cell Distribution Width 17.1 % (11.5-14.5); White Blood Count 9.6 K/mcL (4.3-11.1)
[2021-11-27] MEDS: Morphine Sulfate 2 MG/ML SYRINGE IVP PRN (03:26)
[2021-11-27] MEDS: Ipratropium 1 PUFF INHALER IH SCH ×6 (03:38→23:49)
[2021-11-27] MEDS: Pantoprazole 40 MG VIAL IVP SCH ×2 (07:07→18:05)
[2021-11-27] MEDS: Budesonide/Formoterol 160/4.5 1 PUFF INH IH SCH ×2 (08:13→20:54)
[2021-11-27] MEDS: Dexamethasone Sodium Phos/PF 10 MG/ML VIAL IVP SCH (08:59)
[2021-11-27] MEDS: cefTRIAXone 2,000 MG in 0.9 % Sodium Chloride Mini Bag 100 ML IVPB SCH (09:00)
[2021-11-27] MEDS: Furosemide 20 MG/2 ML VIAL IVP SCH (09:00)
[2021-11-27] MEDS: Artificial Tears SOLN 15 ML BOTTLE BOTH EYES SCH ×4 (09:00→21:20)
[2021-11-27] MEDS: Azithromycin 500 MG in 0.9 % Sodium Chloride 250 ML IVPB SCH (09:01)
[2021-11-27] MEDS: Dexmedetomidine HCl 400 MCG/100 ML MLS IVC SCH (09:34)
[2021-11-27] MEDS: Multivit/Ca/Min/Fe/FA 1 TAB TABLET PO SCH (09:42)
[2021-11-27] MEDS: Ascorbic Acid 500 MG TABLET PO SCH ×2 (09:43→21:21)
[2021-11-27] MEDS: Cholecalciferol (D-3) 1,000 UNIT (25MCG) TABLET PO SCH (09:43)
[2021-11-27 10:51] LABS: Alanine Aminotransferase 44 Units/L (7-52); Albumin 3.2 g/dL (3.5-5.7); Alkaline Phosphatase 74 Units/L (34-104); Aspartate Amino Transferase 92 Units/L (13-39); BUN/Creatinine Ratio 37 (6-26); Bilirubin,Total 0.9 mg/dL (0.3-1.0); Blood Urea Nitrogen 22 mg/dL (8-23); C-Reactive Protein 20 mg/L (Less than 10); Calcium 8.4 mg/dL (8.6-10.3); Carbon Dioxide 25 mEq/L (23-29); Chloride 107 mEq/L (98-107); Globulin 3.2 g/dL (2.4-3.5); Glucose 108 mg/dL (70-105); Lactate Dehydrogenase 663 Units/L (140-271); Osmolality,Calculated 306 (280-300); Phosphorous 2.8 mg/dL (2.7-4.5); Potassium 3.5 mEq/L (3.5-5.1); Sodium 146 mEq/L (136-145); Total Protein 6.4 g/dL (6.4-8.9); eGFR For African Americans > 60 (> 60); eGFR For Non-African Americans > 60 (> 60)
[2021-11-28] MEDS: Dexmedetomidine HCl 400 MCG/100 ML MLS IVC SCH (03:18)
[2021-11-28] MEDS: Ipratropium 1 PUFF INHALER IH SCH ×6 (03:49→23:10)
[2021-11-28] MEDS: Pantoprazole 40 MG VIAL IVP SCH ×2 (06:02→18:31)
[2021-11-28] MEDS: Budesonide/Formoterol 160/4.5 1 PUFF INH IH SCH ×2 (07:53→19:23)
[2021-11-28] MEDS: Azithromycin 500 MG in 0.9 % Sodium Chloride 250 ML IVPB SCH (09:39)
[2021-11-28] MEDS: cefTRIAXone 2,000 MG in 0.9 % Sodium Chloride Mini Bag 100 ML IVPB SCH (09:39)
[2021-11-28] MEDS: Multivit/Ca/Min/Fe/FA 1 TAB TABLET PO SCH (09:41)
[2021-11-28] MEDS: Furosemide 20 MG/2 ML VIAL IVP SCH (09:41)
[2021-11-28] MEDS: Cholecalciferol (D-3) 1,000 UNIT (25MCG) TABLET PO SCH (09:41)
[2021-11-28] MEDS: Saliva Stimulant 44.3ml BOTTLE PO PRN (09:41)
[2021-11-28] MEDS: Ascorbic Acid 500 MG TABLET PO SCH ×2 (09:41→21:59)
[2021-11-28] MEDS: Dexamethasone Sodium Phos/PF 10 MG/ML VIAL IVP SCH (09:41)
[2021-11-28] MEDS: Artificial Tears SOLN 15 ML BOTTLE BOTH EYES SCH ×4 (09:42→22:00)
[2021-11-28] MEDS: Acetaminophen 325 MG TABLET PO PRN ×2 (12:36→21:59)
[2021-11-28 13:48] LABS: Hemoglobin 15.6 g/dL (11.5-15.4); Mean Corpuscular Volume 85.5 fL (83.0-100.0)
[2021-11-28 13:50] LABS: Hematocrit 48.4 % (35.3-44.9); Immature Platelets 18.5 % (1.1-6.1); Mean Corpuscular HGB Conc 32.2 g/dL (31.6-35.5); Mean Corpuscular Hemoglobin 27.6 pg (28.0-33.3); Platelet Count 117 K/mcL (140-400); Red Blood Count 5.66 M/mcL (3.82-4.97); Red Cell Distribution Width 16.9 % (11.5-14.5); White Blood Count 11.5 K/mcL (4.3-11.1)
[2021-11-28 14:11] LABS: BUN/Creatinine Ratio 33 (6-26); Blood Urea Nitrogen 20 mg/dL (8-23); Calcium 8.1 mg/dL (8.6-10.3); Carbon Dioxide 29 mEq/L (23-29); Chloride 103 mEq/L (98-107); Glucose 142 mg/dL (70-105); Osmolality,Calculated 301 (280-300); Potassium 3.2 mEq/L (3.5-5.1); Sodium 143 mEq/L (136-145); eGFR For African Americans > 60 (> 60); eGFR For Non-African Americans > 60 (> 60)
[2021-11-28] MEDS: Melatonin 3 MG TABLET PO PRN (21:59)
[2021-11-29] MEDS: Dexmedetomidine HCl 400 MCG/100 ML MLS IVC SCH ×2 (01:00→21:21)
[2021-11-29] MEDS: Heparin 25,000UNIT/250ML 1/2NS 25,000 UNIT/250 ML IV.SOLN IVC SCH ×2 (01:00→09:15)
[2021-11-29] MEDS: Ipratropium 1 PUFF INHALER IH SCH ×6 (03:26→23:46)
[2021-11-29] MEDS: Pantoprazole 40 MG VIAL IVP SCH ×2 (05:38→18:24)
[2021-11-29] MEDS: Budesonide/Formoterol 160/4.5 1 PUFF INH IH SCH ×2 (08:42→20:02)
[2021-11-29] MEDS: Ascorbic Acid 500 MG TABLET PO SCH ×2 (08:58→21:21)
[2021-11-29] MEDS: Multivit/Ca/Min/Fe/FA 1 TAB TABLET PO SCH (08:58)
[2021-11-29] MEDS: Cholecalciferol (D-3) 1,000 UNIT (25MCG) TABLET PO SCH (08:58)
[2021-11-29] MEDS: Dexamethasone Sodium Phos/PF 10 MG/ML VIAL IVP SCH (09:03)
[2021-11-29] MEDS: Furosemide 20 MG/2 ML VIAL IVP SCH (09:04)
[2021-11-29] MEDS: cefTRIAXone 2,000 MG in 0.9 % Sodium Chloride Mini Bag 100 ML IVPB SCH (09:06)
[2021-11-29] MEDS: Artificial Tears SOLN 15 ML BOTTLE BOTH EYES SCH ×4 (09:15→20:18)
[2021-11-29] MEDS: Azithromycin 500 MG in 0.9 % Sodium Chloride 250 ML IVPB SCH (10:16)
[2021-11-29 11:10] LABS: Hematocrit 48.7 % (35.3-44.9); Hemoglobin 15.9 g/dL (11.5-15.4); Immature Platelets 18.3 % (1.1-6.1); Mean Corpuscular HGB Conc 32.6 g/dL (31.6-35.5); Mean Corpuscular Hemoglobin 27.2 pg (28.0-33.3); Mean Corpuscular Volume 83.4 fL (83.0-100.0); Platelet Count 121 K/mcL (140-400); Red Blood Count 5.84 M/mcL (3.82-4.97); Red Cell Distribution Width 16.7 % (11.5-14.5)
[2021-11-29 11:21] LABS: Alanine Aminotransferase 36 Units/L (7-52); Albumin 3.2 g/dL (3.5-5.7); Albumin/Globulin Ratio 0.9 (1.1-2.2); Alkaline Phosphatase 81 Units/L (34-104); Aspartate Amino Transferase 45 Units/L (13-39); BUN/Creatinine Ratio 32 (6-26); Bilirubin,Total 0.6 mg/dL (0.3-1.0); Blood Urea Nitrogen 20 mg/dL (8-23); Calcium 8.3 mg/dL (8.6-10.3); Carbon Dioxide 31 mEq/L (23-29); Chloride 103 mEq/L (98-107); Globulin 3.5 g/dL (2.4-3.5); Glucose 114 mg/dL (70-105); Osmolality,Calculated 297 (280-300); Potassium 3.1 mEq/L (3.5-5.1); Sodium 142 mEq/L (136-145); Total Protein 6.7 g/dL (6.4-8.9); eGFR For African Americans > 60 (> 60); eGFR For Non-African Americans > 60 (> 60)
[2021-11-29] MEDS: *HR* Heparin 5,000 UNIT/ML VIAL IVP PRN (11:51)
[2021-11-30 02:06] LABS: Basophils % 0.4 %; Hematocrit 48.3 % (35.3-44.9); Hemoglobin 15.3 g/dL (11.5-15.4); Immature Granulocytes % 2.2 % (0-4); Immature Platelets 18.1 % (1.1-6.1); Lymphocytes # 0.6 K/mcL (0.6-4.6); Lymphocytes % 6.8 %; Mean Corpuscular HGB Conc 31.7 g/dL (31.6-35.5); Mean Corpuscular Hemoglobin 27.1 pg (28.0-33.3); Mean Corpuscular Volume 85.5 fL (83.0-100.0); Monocytes # 0.5 K/mcL (0.0-1.3); Monocytes % 5.9 %; Neutrophils # 6.8 K/mcL (1.6-8.9); Platelet Count 128 K/mcL (140-400); Red Blood Count 5.65 M/mcL (3.82-4.97); Red Cell Distribution Width 16.9 % (11.5-14.5); Segmented Neutrophils % 84.7 %; White Blood Count 8.1 K/mcL (4.3-11.1)
[2021-11-30 02:21] LABS: Alanine Aminotransferase 34 Units/L (7-52); Albumin 3.1 g/dL (3.5-5.7); Albumin/Globulin Ratio 0.9 (1.1-2.2); Alkaline Phosphatase 78 Units/L (34-104); Aspartate Amino Transferase 39 Units/L (13-39); Bilirubin,Total 0.7 mg/dL (0.3-1.0); Blood Urea Nitrogen 20 mg/dL (8-23); Calcium 8.1 mg/dL (8.6-10.3); Carbon Dioxide 33 mEq/L (23-29); Chloride 101 mEq/L (98-107); Globulin 3.5 g/dL (2.4-3.5); Glucose 116 mg/dL (70-105); Lactate Dehydrogenase 390 Units/L (140-271); Magnesium 2.1 mg/dL (1.6-2.6); Osmolality,Calculated 300 (280-300); Potassium 3.1 mEq/L (3.5-5.1); Sodium 143 mEq/L (136-145); Total Protein 6.6 g/dL (6.4-8.9)
[2021-11-30 02:35] LABS: Ferritin 329 ng/mL (10-120)
[2021-11-30 03:28] LABS: BUN/Creatinine Ratio 28 (6-26); eGFR For African Americans > 60 (> 60); eGFR For Non-African Americans > 60 (> 60)
[2021-11-30] MEDS: Ipratropium 1 PUFF INHALER IH SCH ×5 (03:44→20:32)
[2021-11-30] MEDS: Pantoprazole 40 MG VIAL IVP SCH ×2 (05:02→18:13)
[2021-11-30] MEDS: Budesonide/Formoterol 160/4.5 1 PUFF INH IH SCH ×2 (08:30→20:32)
[2021-11-30] MEDS: Dexamethasone Sodium Phos/PF 10 MG/ML VIAL IVP SCH (09:07)
[2021-11-30] MEDS: Multivit/Ca/Min/Fe/FA 1 TAB TABLET PO SCH (09:07)
[2021-11-30] MEDS: Saliva Stimulant 44.3ml BOTTLE PO PRN (09:08)
[2021-11-30] MEDS: Saline Nasal Spray 44 ML BOTTLE NS PRN (09:08)
[2021-11-30] MEDS: Ascorbic Acid 500 MG TABLET PO SCH ×3 (09:08→23:14)
[2021-11-30] MEDS: Heparin 25,000UNIT/250ML 1/2NS 25,000 UNIT/250 ML IV.SOLN IVC SCH ×2 (09:13→15:09)
[2021-11-30] MEDS: Artificial Tears SOLN 15 ML BOTTLE BOTH EYES SCH ×4 (11:53→23:11)
[2021-11-30] MEDS: Furosemide 20 MG/2 ML VIAL IVP SCH ×2 (11:56→18:14)
[2021-11-30] MEDS: Cholecalciferol (D-3) 1,000 UNIT (25MCG) TABLET PO SCH (11:56)
[2021-11-30 17:41] LABS: Heparin anti-factor XA UFH 0.34 IU/mL (0.30-0.70)
[2021-11-30 17:44] LABS: Activated Partial Thrombo Time 51.5 Seconds (26.0-36.0)
[2021-11-30] MEDS: Acetaminophen 325 MG TABLET PO PRN (23:10)
[2021-11-30] MEDS: Melatonin 3 MG TABLET PO PRN (23:11)
[2021-12-01] MEDS: Ipratropium 1 PUFF INHALER IH SCH ×7 (00:09→23:43)
[2021-12-01] MEDS: Dexmedetomidine HCl 400 MCG/100 ML MLS IVC SCH ×2 (00:24→22:01)
[2021-12-01 00:54] LABS: Basophils % 0.4 %; Hematocrit 49.7 % (35.3-44.9); Mean Corpuscular HGB Conc 32.2 g/dL (31.6-35.5); Mean Corpuscular Hemoglobin 27.3 pg (28.0-33.3); Mean Corpuscular Volume 84.8 fL (83.0-100.0); Red Blood Count 5.86 M/mcL (3.82-4.97)
[2021-12-01 00:56] LABS: Immature Granulocytes % 3.3 % (0-4); Immature Platelets 17.9 % (1.1-6.1); Lymphocytes # 0.8 K/mcL (0.6-4.6); Monocytes # 0.5 K/mcL (0.0-1.3); Monocytes % 5.2 %; Neutrophils # 7.6 K/mcL (1.6-8.9); Platelet Count 127 K/mcL (140-400); Red Cell Distribution Width 16.8 % (11.5-14.5); Segmented Neutrophils % 82.1 %; White Blood Count 9.2 K/mcL (4.3-11.1)
[2021-12-01 01:16] LABS: Alanine Aminotransferase 43 Units/L (7-52); Albumin 3.1 g/dL (3.5-5.7); Albumin/Globulin Ratio 0.8 (1.1-2.2); Alkaline Phosphatase 84 Units/L (34-104); Aspartate Amino Transferase 61 Units/L (13-39); BUN/Creatinine Ratio 29 (6-26); Bilirubin,Total 0.9 mg/dL (0.3-1.0); Blood Urea Nitrogen 20 mg/dL (8-23); Calcium 8.2 mg/dL (8.6-10.3); Carbon Dioxide 31 mEq/L (23-29); Chloride 99 mEq/L (98-107); Globulin 3.7 g/dL (2.4-3.5); Glucose 99 mg/dL (70-105); Osmolality,Calculated 295 (280-300); Potassium 3.9 mEq/L (3.5-5.1); Sodium 141 mEq/L (136-145); Total Protein 6.8 g/dL (6.4-8.9); eGFR For African Americans > 60 (> 60); eGFR For Non-African Americans > 60 (> 60)
[2021-12-01] MEDS: Pantoprazole 40 MG VIAL IVP SCH (05:40)
[2021-12-01] MEDS: Budesonide/Formoterol 160/4.5 1 PUFF INH IH SCH ×2 (07:35→20:06)
[2021-12-01] MEDS: Heparin 25,000UNIT/250ML 1/2NS 25,000 UNIT/250 ML IV.SOLN IVC SCH (08:52)
[2021-12-01] MEDS: Dexamethasone Sodium Phos/PF 10 MG/ML VIAL IVP SCH (08:53)
[2021-12-01] MEDS: Furosemide 20 MG/2 ML VIAL IVP SCH ×2 (08:53→16:54)
[2021-12-01] MEDS: Artificial Tears SOLN 15 ML BOTTLE BOTH EYES SCH ×4 (09:09→20:05)
[2021-12-01] MEDS: Multivit/Ca/Min/Fe/FA 1 TAB TABLET PO SCH (09:10)
[2021-12-01] MEDS: Ascorbic Acid 500 MG TABLET PO SCH ×2 (09:10→20:04)
[2021-12-01] MEDS: Cholecalciferol (D-3) 1,000 UNIT (25MCG) TABLET PO SCH (09:10)
[2021-12-01] MEDS ORDERED: *HR* Dextrose 50 % in Water (Vial) 50 ML VIAL IVP ONE (09:18)
[2021-12-01 18:23] LABS: Heparin anti-factor XA UFH 0.66 IU/mL (0.30-0.70)
[2021-12-01 18:50] LABS: Activated Partial Thrombo Time 100.6 Seconds (26.0-36.0)
[2021-12-02 03:26] LABS: Eosinophils % 0.1 %
[2021-12-02 03:28] LABS: Basophils # 0.1 K/mcL (0.0-0.2); Basophils % 0.5 %; Hematocrit 48.4 % (35.3-44.9); Hemoglobin 15.2 g/dL (11.5-15.4); Immature Granulocytes % 3.2 % (0-4); Immature Platelets 17.3 % (1.1-6.1); Lymphocytes # 0.7 K/mcL (0.6-4.6); Mean Corpuscular HGB Conc 31.4 g/dL (31.6-35.5); Mean Corpuscular Hemoglobin 27.1 pg (28.0-33.3); Mean Corpuscular Volume 86.4 fL (83.0-100.0); Monocytes # 0.7 K/mcL (0.0-1.3); Monocytes % 4.7 %; Neutrophils # 12.1 K/mcL (1.6-8.9); Platelet Count 121 K/mcL (140-400); Segmented Neutrophils % 86.5 %
[2021-12-02 03:46] LABS: Alanine Aminotransferase 39 Units/L (7-52); Albumin 3.2 g/dL (3.5-5.7); Alkaline Phosphatase 91 Units/L (34-104); Aspartate Amino Transferase 48 Units/L (13-39); BUN/Creatinine Ratio 25 (6-26); Blood Urea Nitrogen 17 mg/dL (8-23); C-Reactive Protein 95 mg/L (Less than 10); Calcium 8.2 mg/dL (8.6-10.3); Carbon Dioxide 31 mEq/L (23-29); Chloride 99 mEq/L (98-107); Globulin 3.3 g/dL (2.4-3.5); Glucose 101 mg/dL (70-105); Lactate Dehydrogenase 516 Units/L (140-271); Magnesium 1.9 mg/dL (1.6-2.6); Osmolality,Calculated 292 (280-300); Sodium 140 mEq/L (136-145); Total Protein 6.5 g/dL (6.4-8.9); eGFR For African Americans > 60 (> 60); eGFR For Non-African Americans > 60 (> 60)
[2021-12-02 04:04] LABS: Ferritin 405 ng/mL (10-120)
[2021-12-02] MEDS: Ipratropium 1 PUFF INHALER IH SCH ×5 (04:19→20:25)
[2021-12-02] MEDS: Heparin 25,000UNIT/250ML 1/2NS 25,000 UNIT/250 ML IV.SOLN IVC SCH (05:13)
[2021-12-02] MEDS: Budesonide/Formoterol 160/4.5 1 PUFF INH IH SCH ×2 (07:29→20:25)
[2021-12-02] MEDS: Furosemide 20 MG/2 ML VIAL IVP SCH ×2 (08:19→16:46)
[2021-12-02] MEDS: Dexamethasone Sodium Phos/PF 10 MG/ML VIAL IVP SCH (08:20)
[2021-12-02] MEDS: Ascorbic Acid 500 MG TABLET PO SCH ×3 (08:20→19:50)
[2021-12-02] MEDS: Multivit/Ca/Min/Fe/FA 1 TAB TABLET PO SCH ×2 (08:20→08:32)
[2021-12-02] MEDS: Cholecalciferol (D-3) 1,000 UNIT (25MCG) TABLET PO SCH ×2 (08:20→08:32)
[2021-12-02] MEDS: Artificial Tears SOLN 15 ML BOTTLE BOTH EYES SCH ×4 (08:30→19:50)
[2021-12-02] MEDS: Dexmedetomidine HCl 400 MCG/100 ML MLS IVC SCH (13:13)
[2021-12-03] MEDS: Heparin 25,000UNIT/250ML 1/2NS 25,000 UNIT/250 ML IV.SOLN IVC SCH (00:29)
[2021-12-03] MEDS: Ipratropium 1 PUFF INHALER IH SCH ×7 (00:50→23:21)
[2021-12-03] MEDS: Dexmedetomidine HCl 400 MCG/100 ML MLS IVC SCH ×2 (01:47→14:17)
[2021-12-03 02:38] LABS: Basophils % 0.2 %; Eosinophils % 0.1 %; Hematocrit 49.5 % (35.3-44.9); Hemoglobin 15.8 g/dL (11.5-15.4); Immature Granulocytes % 2.1 % (0-4); Immature Platelets 18.4 % (1.1-6.1); Lymphocytes # 0.5 K/mcL (0.6-4.6); Lymphocytes % 3.1 %; Mean Corpuscular HGB Conc 31.9 g/dL (31.6-35.5); Mean Corpuscular Volume 87.6 fL (83.0-100.0); Monocytes # 0.5 K/mcL (0.0-1.3); Monocytes % 3.1 %; Platelet Count 109 K/mcL (140-400); Red Blood Count 5.65 M/mcL (3.82-4.97); Red Cell Distribution Width 16.7 % (11.5-14.5); Segmented Neutrophils % 91.4 %; White Blood Count 16.6 K/mcL (4.3-11.1)
[2021-12-03 02:44] LABS: Neutrophils # 15.2 K/mcL (1.6-8.9)
[2021-12-03 02:55] LABS: Alanine Aminotransferase 32 Units/L (7-52); Albumin 3.2 g/dL (3.5-5.7); Albumin/Globulin Ratio 0.8 (1.1-2.2); Alkaline Phosphatase 101 Units/L (34-104); Aspartate Amino Transferase 35 Units/L (13-39); BUN/Creatinine Ratio 31 (6-26); Blood Urea Nitrogen 20 mg/dL (8-23); Calcium 8.5 mg/dL (8.6-10.3); Carbon Dioxide 36 mEq/L (23-29); Chloride 98 mEq/L (98-107); Globulin 3.8 g/dL (2.4-3.5); Glucose 118 mg/dL (70-105); Osmolality,Calculated 296 (280-300); Potassium 3.4 mEq/L (3.5-5.1); Sodium 141 mEq/L (136-145); eGFR For African Americans > 60 (> 60); eGFR For Non-African Americans > 60 (> 60)
[2021-12-03] MEDS: Budesonide/Formoterol 160/4.5 1 PUFF INH IH SCH ×2 (07:52→20:19)
[2021-12-03] MEDS: Dexamethasone Sodium Phos/PF 10 MG/ML VIAL IVP SCH (08:06)
[2021-12-03] MEDS: Furosemide 20 MG/2 ML VIAL IVP SCH ×2 (08:07→17:12)
[2021-12-03] MEDS: Cholecalciferol (D-3) 1,000 UNIT (25MCG) TABLET PO SCH (08:07)
[2021-12-03] MEDS: Ascorbic Acid 500 MG TABLET PO SCH ×2 (08:07→19:46)
[2021-12-03] MEDS: Multivit/Ca/Min/Fe/FA 1 TAB TABLET PO SCH (08:07)
[2021-12-03] MEDS: Artificial Tears SOLN 15 ML BOTTLE BOTH EYES SCH ×4 (08:07→23:27)
[2021-12-03] MEDS: *HR* Heparin 5,000 UNIT/ML VIAL IVP PRN (11:14)
[2021-12-03] MEDS: Morphine Sulfate 2 MG/ML SYRINGE IVP PRN (11:22)
[2021-12-04 02:25] LABS: Hemoglobin 15.2 g/dL (11.5-15.4); Mean Corpuscular Hemoglobin 27.5 pg (28.0-33.3); Red Cell Distribution Width 16.9 % (11.5-14.5)
[2021-12-04 02:27] LABS: Basophils % 0.3 %; Eosinophils % 0.3 %; Hematocrit 48.6 % (35.3-44.9); Immature Platelets 20.4 % (1.1-6.1); Lymphocytes # 0.6 K/mcL (0.6-4.6); Lymphocytes % 4.9 %; Mean Corpuscular HGB Conc 31.3 g/dL (31.6-35.5); Monocytes # 0.5 K/mcL (0.0-1.3); Monocytes % 4.2 %; Neutrophils # 11.2 K/mcL (1.6-8.9); Platelet Count 102 K/mcL (140-400); Red Blood Count 5.52 M/mcL (3.82-4.97); Segmented Neutrophils % 88.3 %; White Blood Count 12.7 K/mcL (4.3-11.1)
[2021-12-04] MEDS: Dexmedetomidine HCl 400 MCG/100 ML MLS IVC SCH (02:35)
[2021-12-04 02:51] LABS: Alanine Aminotransferase 27 Units/L (7-52); Albumin 3.2 g/dL (3.5-5.7); Albumin/Globulin Ratio 0.8 (1.1-2.2); Alkaline Phosphatase 96 Units/L (34-104); Aspartate Amino Transferase 29 Units/L (13-39); BUN/Creatinine Ratio 41 (6-26); Bilirubin,Total 0.9 mg/dL (0.3-1.0); Blood Urea Nitrogen 30 mg/dL (8-23); C-Reactive Protein 170 mg/L (Less than 10); Calcium 8.6 mg/dL (8.6-10.3); Carbon Dioxide 36 mEq/L (23-29); Chloride 95 mEq/L (98-107); Globulin 3.8 g/dL (2.4-3.5); Glucose 110 mg/dL (70-105); Lactate Dehydrogenase 454 Units/L (140-271); Osmolality,Calculated 299 (280-300); Potassium 3.3 mEq/L (3.5-5.1); Sodium 141 mEq/L (136-145); eGFR For African Americans > 60 (> 60); eGFR For Non-African Americans > 60 (> 60)
[2021-12-04 03:04] LABS: Ferritin 400 ng/mL (10-120)
[2021-12-04] MEDS: Ipratropium 1 PUFF INHALER IH SCH ×6 (03:23→23:25)
[2021-12-04] MEDS: Saliva Stimulant 44.3ml BOTTLE PO PRN ×2 (04:32→17:29)
[2021-12-04] MEDS: Saline Nasal Spray 44 ML BOTTLE NS PRN (04:32)
[2021-12-04] MEDS: *HR* Heparin 5,000 UNIT/ML VIAL IVP PRN ×2 (06:24→18:50)
[2021-12-04] MEDS: Heparin 25,000UNIT/250ML 1/2NS 25,000 UNIT/250 ML IV.SOLN IVC SCH (06:26)
[2021-12-04] MEDS: Budesonide/Formoterol 160/4.5 1 PUFF INH IH SCH ×2 (08:00→20:05)
[2021-12-04] MEDS: Ascorbic Acid 500 MG TABLET PO SCH ×2 (08:26→19:47)
[2021-12-04] MEDS: Dexamethasone Sodium Phos/PF 10 MG/ML VIAL IVP SCH (08:26)
[2021-12-04] MEDS: Multivit/Ca/Min/Fe/FA 1 TAB TABLET PO SCH (08:26)
[2021-12-04] MEDS: Cholecalciferol (D-3) 1,000 UNIT (25MCG) TABLET PO SCH (08:26)
[2021-12-04] MEDS: Artificial Tears SOLN 15 ML BOTTLE BOTH EYES SCH ×4 (08:27→19:47)
[2021-12-04] MEDS: Morphine Sulfate 2 MG/ML SYRINGE IVP PRN ×2 (10:55→19:47)
[2021-12-04] MEDS: Furosemide 20 MG/2 ML VIAL IVP SCH ×2 (10:58→17:23)
[2021-12-05] MEDS: Heparin 25,000UNIT/250ML 1/2NS 25,000 UNIT/250 ML IV.SOLN IVC SCH ×2 (00:26→23:17)
[2021-12-05] MEDS: Dexmedetomidine HCl 400 MCG/100 ML MLS IVC SCH (00:34)
[2021-12-05] MEDS: Ipratropium 1 PUFF INHALER IH SCH ×6 (03:39→23:49)
[2021-12-05 07:26] LABS: Heparin anti-factor XA UFH 0.43 IU/mL (0.30-0.70)
[2021-12-05] MEDS: Budesonide/Formoterol 160/4.5 1 PUFF INH IH SCH ×2 (07:43→20:33)
[2021-12-05 08:01] LABS: Hematocrit 47.5 % (35.3-44.9); Mean Corpuscular Volume 86.1 fL (83.0-100.0); Red Blood Count 5.52 M/mcL (3.82-4.97)
[2021-12-05 08:03] LABS: Basophils % 0.2 %; Eosinophils # 0.1 K/mcL (0.0-0.6); Eosinophils % 0.6 %; Hemoglobin 15.2 g/dL (11.5-15.4); Immature Granulocytes % 1.7 % (0-4); Immature Platelets 19.8 % (1.1-6.1); Lymphocytes % 4.8 %; Mean Corpuscular Hemoglobin 27.5 pg (28.0-33.3); Monocytes # 0.8 K/mcL (0.0-1.3); Monocytes % 5.7 %; Platelet Count 101 K/mcL (140-400); Red Cell Distribution Width 16.7 % (11.5-14.5); White Blood Count 13.5 K/mcL (4.3-11.1)
[2021-12-05 08:10] LABS: Lymphocytes # 0.7 K/mcL (0.6-4.6); Neutrophils # 11.8 K/mcL (1.6-8.9)
[2021-12-05 08:16] LABS: Alanine Aminotransferase 25 Units/L (7-52); Albumin 3.2 g/dL (3.5-5.7); Albumin/Globulin Ratio 0.8 (1.1-2.2); Alkaline Phosphatase 97 Units/L (34-104); Aspartate Amino Transferase 36 Units/L (13-39); BUN/Creatinine Ratio 52 (6-26); Blood Urea Nitrogen 34 mg/dL (8-23); Calcium 8.6 mg/dL (8.6-10.3); Carbon Dioxide 31 mEq/L (23-29); Chloride 92 mEq/L (98-107); Globulin 3.8 g/dL (2.4-3.5); Glucose 106 mg/dL (70-105); Osmolality,Calculated 288 (280-300); Potassium 3.5 mEq/L (3.5-5.1); Sodium 135 mEq/L (136-145); eGFR For African Americans > 60 (> 60); eGFR For Non-African Americans > 60 (> 60)
[2021-12-05] MEDS: Multivit/Ca/Min/Fe/FA 1 TAB TABLET PO SCH (09:08)
[2021-12-05] MEDS: Ascorbic Acid 500 MG TABLET PO SCH ×2 (09:08→20:03)
[2021-12-05] MEDS: Cholecalciferol (D-3) 1,000 UNIT (25MCG) TABLET PO SCH (09:08)
[2021-12-05] MEDS: Furosemide 20 MG/2 ML VIAL IVP SCH ×2 (09:14→18:42)
[2021-12-05] MEDS: Artificial Tears SOLN 15 ML BOTTLE BOTH EYES SCH ×4 (09:14→20:03)
[2021-12-05 09:55] LABS: Activated Partial Thrombo Time 47.8 Seconds (26.0-36.0)
[2021-12-05] MEDS ORDERED: Lidocaine -MPF 1% 5 ML AMPUL INFILT ONE (10:07)
[2021-12-05 10:09] LABS: Magnesium 2.1 mg/dL (1.6-2.6); Phosphorous 3.7 mg/dL (2.7-4.5); Triglycerides 165 mg/dL (< 150)
[2021-12-05] MEDS: *HR* Heparin 5,000 UNIT/ML VIAL IVP PRN (10:30)
[2021-12-05] MEDS ORDERED: D10% in Water 500 ML IVC PRN (10:57)
[2021-12-05] MEDS: Morphine Sulfate 2 MG/ML SYRINGE IVP PRN (11:24)
[2021-12-05] MEDS ORDERED: Dextrose Gel 15 GM/37.5 ML TUBE PO PRN ×2 (14:03)
[2021-12-05] MEDS ORDERED: D5% in Water 1,000 ML IVC PRN (14:03)
[2021-12-05] MEDS ORDERED: *HR* Dextrose 50 % in Water (Syg) 50 ML SYRINGE IVP PRN (14:03)
[2021-12-05 16:36] LABS: Phosphorous 3.6 mg/dL (2.7-4.5)
[2021-12-05] MEDS ORDERED: Clinimix E 5%-15% SOLUTION 2,000 ML with MVI, adult with vitamin K 10 ML IVC SCH (17:00)
[2021-12-05] MEDS: Insulin LISPRO 300 UNITS/3 ML VIAL SUBQ SCH ×2 (17:22→19:44)
[2021-12-06] MEDS: Insulin LISPRO 300 UNITS/3 ML VIAL SUBQ SCH ×6 (00:07→21:36)
[2021-12-06] MEDS: Ipratropium 1 PUFF INHALER IH SCH ×6 (03:38→23:51)
[2021-12-06 04:47] LABS: Basophils # 0.1 K/mcL (0.0-0.2); Basophils % 0.5 %; Eosinophils # 0.1 K/mcL (0.0-0.6); Eosinophils % 0.7 %; Hematocrit 48.3 % (35.3-44.9); Hemoglobin 15.3 g/dL (11.5-15.4); Immature Platelets 17.2 % (1.1-6.1); Lymphocytes # 0.6 K/mcL (0.6-4.6); Lymphocytes % 3.8 %; Mean Corpuscular HGB Conc 31.7 g/dL (31.6-35.5); Mean Corpuscular Hemoglobin 27.6 pg (28.0-33.3); Monocytes % 6.7 %; Platelet Count 122 K/mcL (140-400); Red Blood Count 5.55 M/mcL (3.82-4.97); Red Cell Distribution Width 16.6 % (11.5-14.5); Segmented Neutrophils % 86.3 %; White Blood Count 15.2 K/mcL (4.3-11.1)
[2021-12-06 04:55] LABS: Neutrophils # 13.1 K/mcL (1.6-8.9)
[2021-12-06 05:03] LABS: Alanine Aminotransferase 24 Units/L (7-52); Albumin 3.2 g/dL (3.5-5.7); Albumin/Globulin Ratio 0.9 (1.1-2.2); Alkaline Phosphatase 92 Units/L (34-104); Aspartate Amino Transferase 35 Units/L (13-39); BUN/Creatinine Ratio 50 (6-26); Bilirubin,Total 1.1 mg/dL (0.3-1.0); Blood Urea Nitrogen 29 mg/dL (8-23); Calcium 8.4 mg/dL (8.6-10.3); Carbon Dioxide 32 mEq/L (23-29); Chloride 96 mEq/L (98-107); Globulin 3.7 g/dL (2.4-3.5); Glucose 152 mg/dL (70-105); Osmolality,Calculated 289 (280-300); Phosphorous 2.9 mg/dL (2.7-4.5); Sodium 135 mEq/L (136-145); Total Protein 6.9 g/dL (6.4-8.9); eGFR For African Americans > 60 (> 60); eGFR For Non-African Americans > 60 (> 60)
[2021-12-06] MEDS: Dexmedetomidine HCl 400 MCG/100 ML MLS IVC SCH (05:07)
[2021-12-06] MEDS: Budesonide/Formoterol 160/4.5 1 PUFF INH IH SCH ×2 (07:39→19:52)
[2021-12-06] MEDS: Furosemide 20 MG/2 ML VIAL IVP SCH ×2 (08:27→17:53)
[2021-12-06] MEDS: Artificial Tears SOLN 15 ML BOTTLE BOTH EYES SCH ×4 (08:31→21:34)
[2021-12-06] MEDS: Heparin 25,000UNIT/250ML 1/2NS 25,000 UNIT/250 ML IV.SOLN IVC SCH (08:31)
[2021-12-06] MEDS: Multivit/Ca/Min/Fe/FA 1 TAB TABLET PO SCH (08:32)
[2021-12-06] MEDS: Ascorbic Acid 500 MG TABLET PO SCH ×2 (08:32→21:35)
[2021-12-06] MEDS: Cholecalciferol (D-3) 1,000 UNIT (25MCG) TABLET PO SCH (08:32)
[2021-12-06] MEDS: Acetaminophen 325 MG TABLET PO PRN (08:39)
[2021-12-06] MEDS ORDERED: Fat Emulsion 250 ML IVPB SCH ×2 (17:00→17:30)
[2021-12-06] MEDS ORDERED: Clinimix E 5%-15% SOLUTION 2,000 ML with MVI, adult with vitamin K 10 ML IVC SCH (17:00)
[2021-12-06] MEDS: *HR* Enoxaparin 100 MG/ML SYRINGE SQ SCH (17:55)
[2021-12-07] MEDS: Morphine Sulfate 2 MG/ML SYRINGE IVP PRN (01:09)
[2021-12-07] MEDS: Insulin LISPRO 300 UNITS/3 ML VIAL SUBQ SCH ×6 (01:12→21:06)
[2021-12-07] MEDS: Dexmedetomidine HCl 400 MCG/100 ML MLS IVC SCH ×2 (02:19→12:49)
[2021-12-07] MEDS: Ipratropium 1 PUFF INHALER IH SCH ×6 (03:53→23:41)
[2021-12-07] MEDS: *HR* Enoxaparin 100 MG/ML SYRINGE SQ SCH ×2 (04:54→16:49)
[2021-12-07 05:12] LABS: Magnesium 2.6 mg/dL (1.6-2.6); Phosphorous 6.7 mg/dL (2.7-4.5)
[2021-12-07] MEDS: Budesonide/Formoterol 160/4.5 1 PUFF INH IH SCH ×2 (08:11→20:00)
[2021-12-07] MEDS: Multivit/Ca/Min/Fe/FA 1 TAB TABLET PO SCH (08:30)
[2021-12-07] MEDS: Ascorbic Acid 500 MG TABLET PO SCH ×2 (08:31→21:05)
[2021-12-07] MEDS: Cholecalciferol (D-3) 1,000 UNIT (25MCG) TABLET PO SCH (08:31)
[2021-12-07] MEDS: Furosemide 20 MG/2 ML VIAL IVP SCH ×2 (09:09→16:49)
[2021-12-07] MEDS: Saliva Stimulant 44.3ml BOTTLE PO PRN (09:11)
[2021-12-07] MEDS: Artificial Tears SOLN 15 ML BOTTLE BOTH EYES SCH ×4 (09:11→21:07)
[2021-12-07] MEDS: Saline Nasal Spray 44 ML BOTTLE NS PRN (09:11)
[2021-12-07 09:46] LABS: Hemoglobin 15.2 g/dL (11.5-15.4); Red Cell Distribution Width 16.3 % (11.5-14.5)
[2021-12-07 09:48] LABS: Basophils # 0.1 K/mcL (0.0-0.2); Basophils % 0.6 %; Eosinophils # 0.1 K/mcL (0.0-0.6); Eosinophils % 0.7 %; Hematocrit 48.1 % (35.3-44.9); Immature Platelets 21.7 % (1.1-6.1); Lymphocytes # 0.7 K/mcL (0.6-4.6); Mean Corpuscular HGB Conc 31.6 g/dL (31.6-35.5); Mean Corpuscular Hemoglobin 27.6 pg (28.0-33.3); Mean Corpuscular Volume 87.3 fL (83.0-100.0); Monocytes # 0.9 K/mcL (0.0-1.3); Monocytes % 6.6 %; Neutrophils # 11.4 K/mcL (1.6-8.9); Red Blood Count 5.51 M/mcL (3.82-4.97); Segmented Neutrophils % 84.1 %; White Blood Count 13.5 K/mcL (4.3-11.1)
[2021-12-07 09:55] LABS: Platelet Count 98 K/mcL (140-400)
[2021-12-07 11:10] LABS: BUN/Creatinine Ratio 43 (6-26); Blood Urea Nitrogen 28 mg/dL (8-23); Calcium 8.9 mg/dL (8.6-10.3); Carbon Dioxide 34 mEq/L (23-29); Chloride 94 mEq/L (98-107); Glucose 167 mg/dL (70-105); Osmolality,Calculated 295 (280-300); Phosphorous 2.6 mg/dL (2.7-4.5); Potassium 3.4 mEq/L (3.5-5.1); Sodium 138 mEq/L (136-145); eGFR For African Americans > 60 (> 60); eGFR For Non-African Americans > 60 (> 60)
[2021-12-07] MEDS ORDERED: Potassium Phosphate 44 MEQ in 0.9 % Sodium Chloride 250 ML IVPB ONE (12:00)
[2021-12-07] MEDS ORDERED: Clinimix E 5%-15% SOLUTION 2,000 ML with MVI, adult with vitamin K 10 ML IVC SCH (17:00)
[2021-12-08] MEDS: Insulin LISPRO 300 UNITS/3 ML VIAL SUBQ SCH ×6 (01:08→21:32)
[2021-12-08] MEDS: Morphine Sulfate 2 MG/ML SYRINGE IVP PRN (02:42)
[2021-12-08 03:15] LABS: Eosinophils % 0.3 %; Red Cell Distribution Width 16.5 % (11.5-14.5)
[2021-12-08 03:17] LABS: BUN/Creatinine Ratio 48 (6-26); Basophils # 0.1 K/mcL (0.0-0.2); Basophils % 0.7 %; Blood Urea Nitrogen 30 mg/dL (8-23); Carbon Dioxide 34 mEq/L (23-29); Chloride 98 mEq/L (98-107); Eosinophils # 0.1 K/mcL (0.0-0.6); Glucose 129 mg/dL (70-105); Hematocrit 49.3 % (35.3-44.9); Hemoglobin 15.5 g/dL (11.5-15.4); Immature Granulocytes % 3.4 % (0-4); Immature Platelets 18.7 % (1.1-6.1); Lymphocytes # 0.8 K/mcL (0.6-4.6); Mean Corpuscular HGB Conc 31.4 g/dL (31.6-35.5); Mean Corpuscular Hemoglobin 27.9 pg (28.0-33.3); Mean Corpuscular Volume 88.7 fL (83.0-100.0); Monocytes % 6.9 %; Neutrophils # 12.7 K/mcL (1.6-8.9); Osmolality,Calculated 296 (280-300); Phosphorous 3.6 mg/dL (2.7-4.5); Platelet Count 112 K/mcL (140-400); Potassium 3.8 mEq/L (3.5-5.1); Red Blood Count 5.56 M/mcL (3.82-4.97); Segmented Neutrophils % 83.7 %; Sodium 139 mEq/L (136-145); White Blood Count 15.2 K/mcL (4.3-11.1); eGFR For African Americans > 60 (> 60); eGFR For Non-African Americans > 60 (> 60)
[2021-12-08 03:33] LABS: Monocytes # 1.1 K/mcL (0.0-1.3)
[2021-12-08] MEDS: Ipratropium 1 PUFF INHALER IH SCH ×6 (03:49→23:33)
[2021-12-08] MEDS: Dexmedetomidine HCl 400 MCG/100 ML MLS IVC SCH ×3 (05:17→18:20)
[2021-12-08] MEDS: *HR* Enoxaparin 100 MG/ML SYRINGE SQ SCH ×2 (05:33→16:48)
[2021-12-08] MEDS: Budesonide/Formoterol 160/4.5 1 PUFF INH IH SCH ×2 (07:58→19:28)
[2021-12-08] MEDS: Furosemide 20 MG/2 ML VIAL IVP SCH ×2 (08:58→16:49)
[2021-12-08] MEDS: Artificial Tears SOLN 15 ML BOTTLE BOTH EYES SCH ×4 (09:14→21:32)
[2021-12-08] MEDS: Ascorbic Acid 500 MG TABLET PO SCH ×2 (09:14→21:11)
[2021-12-08] MEDS: Cholecalciferol (D-3) 1,000 UNIT (25MCG) TABLET PO SCH (09:14)
[2021-12-08] MEDS: Multivit/Ca/Min/Fe/FA 1 TAB TABLET PO SCH (09:14)
[2021-12-08] MEDS ORDERED: Clinimix E 5%-15% SOLUTION 2,000 ML with MVI, adult with vitamin K 10 ML IVC SCH (17:00)
[2021-12-08] MEDS ORDERED: Fat Emulsion 250 ML IVPB SCH (17:00)
[2021-12-08] MEDS: Insulin DETEMIR 100 UNIT/ML X5UNITS SUBQ SCH (21:33)
[2021-12-08] MEDS ORDERED: Morphine Sulfate 2 MG/ML SYRINGE IVP ONE (22:21)
[2021-12-09] MEDS: Insulin LISPRO 300 UNITS/3 ML VIAL SUBQ SCH ×6 (00:18→20:26)
[2021-12-09] MEDS: Dexmedetomidine HCl 400 MCG/100 ML MLS IVC SCH ×4 (00:36→17:06)
[2021-12-09] MEDS ORDERED: *HR* LORazepam 2 MG/ML VIAL IVP ONE (00:55)
[2021-12-09] MEDS: Ipratropium 1 PUFF INHALER IH SCH ×6 (03:50→23:24)
[2021-12-09] MEDS: *HR* Enoxaparin 100 MG/ML SYRINGE SQ SCH ×2 (04:57→17:08)
[2021-12-09 05:25] LABS: Immature Granulocytes % 2.2 % (0-4); Red Cell Distribution Width 16.2 % (11.5-14.5)
[2021-12-09 05:27] LABS: Basophils % 0.2 %; Eosinophils # 0.2 K/mcL (0.0-0.6); Eosinophils % 1.7 %; Hematocrit 45.8 % (35.3-44.9); Hemoglobin 14.4 g/dL (11.5-15.4); Immature Platelets 17.4 % (1.1-6.1); Lymphocytes # 0.6 K/mcL (0.6-4.6); Mean Corpuscular HGB Conc 31.4 g/dL (31.6-35.5); Mean Corpuscular Hemoglobin 28.1 pg (28.0-33.3); Mean Corpuscular Volume 89.3 fL (83.0-100.0); Monocytes # 0.6 K/mcL (0.0-1.3); Monocytes % 6.6 %; Neutrophils # 7.2 K/mcL (1.6-8.9); Red Blood Count 5.13 M/mcL (3.82-4.97); Segmented Neutrophils % 82.3 %; White Blood Count 8.8 K/mcL (4.3-11.1)
[2021-12-09 05:29] LABS: Platelet Count 79 K/mcL (140-400)
[2021-12-09 05:44] LABS: Phosphorous 2.9 mg/dL (2.7-4.5)
[2021-12-09 07:36] LABS: BUN/Creatinine Ratio 69 (6-26); Blood Urea Nitrogen 34 mg/dL (8-23); Calcium 8.7 mg/dL (8.6-10.3); Carbon Dioxide 33 mEq/L (23-29); Chloride 95 mEq/L (98-107); Glucose 172 mg/dL (70-105); Osmolality,Calculated 298 (280-300); Potassium 3.4 mEq/L (3.5-5.1); Sodium 138 mEq/L (136-145); eGFR For African Americans > 60 (> 60); eGFR For Non-African Americans > 60 (> 60)
[2021-12-09] MEDS: Budesonide/Formoterol 160/4.5 1 PUFF INH IH SCH ×2 (08:00→20:01)
[2021-12-09] MEDS: Furosemide 20 MG/2 ML VIAL IVP SCH ×2 (08:05→17:10)
[2021-12-09] MEDS: Cholecalciferol (D-3) 1,000 UNIT (25MCG) TABLET PO SCH (08:07)
[2021-12-09] MEDS: Ascorbic Acid 500 MG TABLET PO SCH ×2 (08:07→21:00)
[2021-12-09] MEDS: Multivit/Ca/Min/Fe/FA 1 TAB TABLET PO SCH (08:07)
[2021-12-09] MEDS: Artificial Tears SOLN 15 ML BOTTLE BOTH EYES SCH ×4 (08:20→20:32)
[2021-12-09] MEDS ORDERED: Clinimix E 5%-15% SOLUTION 2,000 ML with MVI, adult with vitamin K 10 ML IVC SCH (17:00)
[2021-12-09] MEDS: Insulin DETEMIR 100 UNIT/ML X5UNITS SUBQ SCH (20:25)
[2021-12-10] MEDS: Dexmedetomidine HCl 400 MCG/100 ML MLS IVC SCH ×5 (00:14→23:51)
[2021-12-10] MEDS: Insulin LISPRO 300 UNITS/3 ML VIAL SUBQ SCH ×6 (00:15→20:50)
[2021-12-10 02:05] LABS: Basophils % 0.3 %; Eosinophils # 0.1 K/mcL (0.0-0.6); Eosinophils % 0.4 %; Hematocrit 47.2 % (35.3-44.9); Hemoglobin 15.3 g/dL (11.5-15.4); Immature Granulocytes % 2.2 % (0-4); Immature Platelets 18.3 % (1.1-6.1); Lymphocytes # 0.8 K/mcL (0.6-4.6); Lymphocytes % 4.9 %; Mean Corpuscular HGB Conc 32.4 g/dL (31.6-35.5); Mean Corpuscular Hemoglobin 28.5 pg (28.0-33.3); Mean Corpuscular Volume 88.1 fL (83.0-100.0); Monocytes # 0.9 K/mcL (0.0-1.3); Neutrophils # 13.5 K/mcL (1.6-8.9); Platelet Count 106 K/mcL (140-400); Red Blood Count 5.36 M/mcL (3.82-4.97); Red Cell Distribution Width 16.2 % (11.5-14.5); Segmented Neutrophils % 86.2 %; White Blood Count 15.7 K/mcL (4.3-11.1)
[2021-12-10 02:08] LABS: Basophils # 0.1 K/mcL (0.0-0.2)
[2021-12-10 02:09] LABS: BUN/Creatinine Ratio 75 (6-26); Blood Urea Nitrogen 33 mg/dL (8-23); Calcium 8.9 mg/dL (8.6-10.3); Carbon Dioxide 35 mEq/L (23-29); Chloride 95 mEq/L (98-107); Glucose 118 mg/dL (70-105); Osmolality,Calculated 294 (280-300); Potassium 3.5 mEq/L (3.5-5.1); Sodium 138 mEq/L (136-145); eGFR For African Americans > 60 (> 60); eGFR For Non-African Americans > 60 (> 60)
[2021-12-10 02:11] LABS: Magnesium 2.1 mg/dL (1.6-2.6); Phosphorous 2.9 mg/dL (2.7-4.5)
[2021-12-10] MEDS: Ipratropium 1 PUFF INHALER IH SCH ×6 (03:40→22:55)
[2021-12-10] MEDS: *HR* Enoxaparin 100 MG/ML SYRINGE SQ SCH ×2 (05:11→17:36)
[2021-12-10] MEDS: Budesonide/Formoterol 160/4.5 1 PUFF INH IH SCH ×2 (07:27→19:31)
[2021-12-10] MEDS: Artificial Tears SOLN 15 ML BOTTLE BOTH EYES SCH ×4 (08:15→20:52)
[2021-12-10] MEDS: Multivit/Ca/Min/Fe/FA 1 TAB TABLET PO SCH (08:16)
[2021-12-10] MEDS: Cholecalciferol (D-3) 1,000 UNIT (25MCG) TABLET PO SCH (08:16)
[2021-12-10] MEDS: Ascorbic Acid 500 MG TABLET PO SCH ×2 (08:16→20:51)
[2021-12-10] MEDS: Furosemide 20 MG/2 ML VIAL IVP SCH ×2 (08:16→15:45)
[2021-12-10] MEDS: Morphine Sulfate 2 MG/ML SYRINGE IVP PRN ×2 (15:46→21:08)
[2021-12-10] MEDS ORDERED: Clinimix E 5%-15% SOLUTION 2,000 ML with MVI, adult with vitamin K 10 ML IVC SCH (17:00)
[2021-12-10] MEDS: Insulin DETEMIR 100 UNIT/ML X5UNITS SUBQ SCH (20:52)
[2021-12-11] MEDS: Insulin LISPRO 300 UNITS/3 ML VIAL SUBQ SCH ×2 (00:26→04:32)
[2021-12-11] MEDS ORDERED: *HR* LORazepam 2 MG/ML VIAL IVP ONE (01:04)
[2021-12-11] MEDS: Dexmedetomidine HCl 400 MCG/100 ML MLS IVC SCH ×3 (01:16→06:21)
[2021-12-11 03:07] VITALS: BP 146/87; PULSE 118; TEMP 98.3; O2SAT 90
[2021-12-11] MEDS: Ipratropium 1 PUFF INHALER IH SCH ×2 (03:39→07:36)
[2021-12-11] MEDS: Morphine Sulfate 2 MG/ML SYRINGE IVP PRN ×2 (03:48→04:00)
[2021-12-11] MEDS ORDERED: *HR* FentaNYL (PF) 100 MCG/2 ML VIAL IVP ONE (03:57)
[2021-12-11] MEDS ORDERED: *HR* LORazepam 2 MG/ML VIAL IVP PRN (04:05)
[2021-12-11] MEDS ORDERED: Haloperidol Lactate 5 MG/ML VIAL IVP PRN (04:06)
[2021-12-11] MEDS: *HR* LORazepam 2 MG/ML VIAL IVP ONE ×2 (04:10→04:32)
[2021-12-11] MEDS ORDERED: FentaNYL (PF) 1,000 MCG/100 ML IV.SOLN IVC SCH (04:15)
[2021-12-11] MEDS: *HR* Enoxaparin 100 MG/ML SYRINGE SQ SCH (04:33)
[2021-12-11] MEDS: Budesonide/Formoterol 160/4.5 1 PUFF INH IH SCH (07:37)
== END 2021-12-11 09:10 | disposition expired | DRG 177 ==
LOC: SUATTDRO 04:22 → 3NENU 04:22
PROVIDERS: ADMIT Internal Medicine; ATTEND Internal Medicine